=== PATIENT | female | born 1990 | race Caucasian/White ===

== ENCOUNTER 2018-09-28 03:44 | Inpatient (IN) ==
[2018-09-28] MEDS ORDERED: LACTATED RINGER'S 1,000 ML IV PRN ×2 (04:37→06:20)
[2018-09-28] MEDS ORDERED: CEFAZOLIN 2000MG 2,000 MG/15 ML SYR IV STA ×2 (04:37)
[2018-09-28] MEDS ORDERED: OXYTOCIN 30 UNITS/500 ML BAG IV PRN ×2 (04:37→18:02)
[2018-09-28] MEDS: LACTATED RINGER'S 1,000 ML IV PRN ×3 (04:40→11:49)
[2018-09-28 05:18] LABS: Hematocrit (blood only) 39.1 % (37-47); Hemoglobin 13.7 g/dL (12.0-16.0); Mean Corpuscular Volume 88.1 fL (80-100); Mean Platelet Volume 10.1 fL (7.4-10.4); Platelet Count 193 K/uL (130-400); RDW Coefficient of Variation 13.5 % (11.5-14.5); RDW Standard Deviation 43.4 fL (36.4-46.3); Red Blood Count 4.44 M/uL (4.2-5.4); White Blood Count 20.36 K/uL (4.8-10.8)
[2018-09-28] MEDS ORDERED: BUPIVACAINE 0.25% 30 ML VIAL ONE (05:30)
[2018-09-28] MEDS ORDERED: ePHEDrine sulfate 50 MG/ML AMP ONE (05:31)
[2018-09-28] MEDS ORDERED: fentaNYL citrate 100 MCG/2 ML VIAL ONE (05:31)
[2018-09-28] MEDS ORDERED: fentaNYL 2MCG/ML ROPIV 1.25MG/ML 100 ML BAG EPI ONE (05:32)
[2018-09-28] MEDS ORDERED: NALOXONE HCL 0.4 MG/1 ML VIAL/CARP IV PRN (06:20)
[2018-09-28] MEDS ORDERED: ONDANSETRON INJ 2 MG/ML 2 ML VIAL IV PRN (06:20)
[2018-09-28] MEDS ORDERED: DiphenhydrAMINE HCL 50 MG/ML VIAL IV PRN (06:20)
[2018-09-28] MEDS ORDERED: NALBUPHINE HCL INJ 10 MG/ML AMP IV PRN (06:20)
[2018-09-28] MEDS ORDERED: ePHEDrine sulfate 50 MG/ML AMP IV PRN (06:20)
[2018-09-28] MEDS ORDERED: PROMETHAZINE HCL 6.25 MG in SODIUM CHLORIDE 0.9% 50 ML IV PRN (06:20)
[2018-09-28] MEDS ORDERED: fentaNYL 2MCG/ML ROPIV 1.25MG/ML 100 ML BAG EPI PRN (06:20)
[2018-09-28] MEDS ORDERED: NALOXONE HCL 1 MG in SODIUM CHLORIDE 0.9% 1000ML 1,000 ML IV PRN (06:20)
--- NOTE | 2018-09-28 06:23 | Anesthesiology Consultation ---
Date of Service September 28, 2018 Assessment & Plan (1) Encounter for pre-operative examination: Chart Review Chart Review: Patient NOT seen in Pre Admission Testing and Acceptable Risk for Labor Epidural Consults Requested none ASA ASA2 Proposed Anesthesia Anesthesia Type: Labor Epidural Risk / Benefits Reviewed With: PT / POA / Parent / Guardian, Accepts Plan and Informed Consent Obtained History Height/Weight Height: 5 ft 5 in Weight: 76.204 kg Allergies Allergy/AdvReac Type Severity Reaction Status Date / Time Sulfa (Sulfonamide Allergy Anaphylaxis Verified 09/28/18 04:03 Antibiotics) amoxicillin AdvReac Rash Verified 09/28/18 04:03 Penicillins AdvReac Rash Verified 09/28/18 04:03 Medications Home Medications Medication Instructions Recorded Confirmed Last Taken vit-iron fum-folic ac 1 tab PO DAILY 09/26/18 09/28/18 09/27/18 22:30 [ Vitamin] Active Medications Generic Name Dose Route Start Last Admin Trade Name Freq PRN Reason Stop Dose Admin Lactated Ringer's 1,000 mls @ 125 mls/hr 09/28/18 04:37 09/28/18 05:54 Lr IV 09/30/18 04:36 125 mls/hr .Q8H PRN Administration L&D Protocol Protocol NPO Date Last Intake of Fluids: 09/27/18 Time Last Intake of Fluids: 23:00 Date Last Intake of Solids: 09/27/18 Time Last Intake of Solids: 23:00 Past Medical History Medical History [place] teeth extracted 2015 Exercise / Class Metabolic Activity II 4-5 Yardwork/Stairs/Walk up hill Past Surgical History Surgical History Hx of LASIK 2014 Past Anesthesia History No Hx of Anesthesia Complications and No Family Hx of Anesthesia Complications History of PONV No Hx of PONV and No Hx of Motion Sickness Social History Smoking Status: Never smoker Hx Alcohol Use: No Hx Substance Use: No substance use type: does not use Physical Exam Vital Signs Last Vital Signs Temp 37.2 C 09/28/18 04:05 Pulse 75 09/28/18 06:19 Resp 20 09/28/18 04:05 BP 112/61 09/28/18 06:19 Pulse Ox 95 09/28/18 06:18 ENMT Mouth: no dentition abnormality Thyromental Distance: > or= 3.5 Finger Breadths Mallampati Class: II Neck normal visual inspection Respiratory normal respiratory effort Auscultation: lungs clear to auscultation bilaterally Cardiovascular Rate/Rhythm: regular rate and regular rhythm Psychiatric Orientation: alert Testing Laboratory Results 09/28/18 05:07
[2018-09-28] MEDS ORDERED: CEFAZOLIN 1000MG 1,000 MG/7.5 ML SYR IV PRN (07:39)
--- NOTE | 2018-09-28 10:16 | History & Physical Report ---
Date of Service September 28, 2018 Assessment & Plan (1) Active labor at term: 28yo G1 at 41 weeks GA. Labor 1. Fetus: Reactive 2. Labor: Progressing 3. GBS +: Ancef 4. Pain: Epidural PRn History of Present Illness Primary Care Provider: BRIANNE PCP 28yo at 41 weeks GA. Patient presents in labor. Denies VB, LOF. Good FM. complicated by GBS +. Allergies Allergy/AdvReac Type Severity Reaction Status Date / Time Sulfa (Sulfonamide Allergy Anaphylaxis Verified 09/28/18 04:03 Antibiotics) amoxicillin AdvReac Rash Verified 09/28/18 04:03 Penicillins AdvReac Rash Verified 09/28/18 04:03 Home Medications Home Medications Medication Instructions Recorded Confirmed Type vit-iron fum-folic ac 1 tab PO DAILY 09/26/18 09/28/18 History [ Vitamin] Patient History Medical History [place] teeth extracted 2015 Surgical History Hx of LASIK 2014 Social History Preferred Language: Nam[place] Communication Ability: Effective Patient Admitting Clerk Required: No Beliefs That Will Affect Care: None marital status: Current Living Situation: Spouse Other Information That Helps Us Care for You: No Feels Safe at Home: Yes Smoking Status: Never smoker Second Hand Exposure: No Hx Alcohol Use: No Hx Substance Use: No Physical Exam Genitourinary: OB Exam Abdomen: + vertex and + regular contractions Manual OB Exam: + cervical dilation 3 cm, + cervical effacement 80% and + station -1 OB Exam Monitor Tracing: + external FHT monitor used and + category I Results & Data Vital Signs (Past 12 Hours) Vital Signs Temp Pulse Resp BP 09/28/18 04:05 99.0 F 103 H 20 127/81 09/28/18 04:02 99.0 F 103 H 20 127/81
[2018-09-28] MEDS ORDERED: ACETAMINOPHEN 325 MG TAB ONE (10:44)
[2018-09-28] MEDS ORDERED: ACETAMINOPHEN 325 MG TAB PO SCH (10:45)
[2018-09-28] MEDS ORDERED: GENTAMICIN CONSULT ACTIVE PRN (12:31)
[2018-09-28] MEDS ORDERED: GENTAMICIN SULFATE 320 MG in DEXTROSE 5% 100 ML IV SCH (13:30)
[2018-09-28] MEDS ORDERED: Nursing to Pharmacy Communication ONE ×2 (13:52→20:09)
[2018-09-28] MEDS ORDERED: ACETAMINOPHEN 325 MG TAB PO PRN ×2 (14:21→18:02)
[2018-09-28] MEDS: OXYTOCIN 30 UNITS/500 ML BAG IV PRN ×2 (17:40→18:25)
[2018-09-28] MEDS ORDERED: METHYLERGONOVINE MALEATE 0.2 MG/ML AMP ONE (17:46)
[2018-09-28] MEDS ORDERED: HYDROCORTISONE ACETATE 25 MG SUPP PR PRN (18:02)
[2018-09-28] MEDS ORDERED: DIPHTHERIA/TETANUS/PERTUSSIS 0.5 ML SYR/VIAL IM ONE (18:02)
[2018-09-28] MEDS ORDERED: SUPERCREAM 0.870% 15 GM JAR EXT PRN (18:02)
[2018-09-28] MEDS ORDERED: METHYLERGONOVINE MALEATE 0.2 MG/ML AMP IM ONE (18:02)
[2018-09-28] MEDS ORDERED: IBUPROFEN 600 MG TAB PO PRN (18:02)
[2018-09-28] MEDS ORDERED: BENZOCAINE 20% AER SPR 82.5 GM CAN EXT PRN (18:02)
[2018-09-28] MEDS ORDERED: miSOPROStol 200 MCG TAB PR ONE (18:02)
[2018-09-28] MEDS ORDERED: miSOPROStol 200 MCG TAB ONE (18:10)
[2018-09-28 18:13] LABS: Base Excess Cord Arterial Bld -3.6 mEq/L (-9-1.8); Base Excess Cord Venous Blood -3.5 mEq/L (-7.7-1.9); CO2 Cord Arterial Blood 52 mmHg (39.1-73.5); Cord Venous Blood HCO3 22 mmol/L (18.4-26.8); Cord Venous Blood PCO2 40 mmHg (30.4-57.2); Cord Venous Blood PO2 34 mmHg (14.1-43.3); Cord Venous Blood pH 7.36 (7.20-7.44); HCO3 Cord Arterial Blood 24 mmol/L (19.7-28.5); O2 Saturation Cord Venous Bld 73.2 % (<68); PO2 Cord Arterial Blood 27.8 % (4.1-31.7); pH Cord Arterial Blood 7.28 (7.1-7.38)
--- NOTE | 2018-09-28 18:38 | Anesthesia Procedure Note ---
Date of Service September 28, 2018 Anesthesia Post Epidural Note Vital Signs Vital Signs: Temp Pulse Resp BP Pulse Ox 37.5 C 75 20 123/62 98 09/28/18 17:53 09/28/18 18:34 09/28/18 17:53 09/28/18 18:34 09/28/18 17:58 Notes Mental Status: alert / awake / arousable Nausea / Vomiting: adequately controlled Pain: adequately controlled Airway Patency, RR, SpO2: stable & adequate BP & HR: stable & adequate Hydration State: stable & adequate Neuraxial Anesthesia: was administered and sensory block is resolving Anesthetic Complications: no major complications apparent Epidural: Removed without complications and With tip intact
[2018-09-28] MEDS: CEFAZOLIN 1000MG 1,000 MG/7.5 ML SYR IV SCH (21:34)
[2018-09-28] MEDS: DOCUSATE SODIUM 100 MG CAP PO SCH (21:34)
[2018-09-29] MEDS: CEFAZOLIN 1000MG 1,000 MG/7.5 ML SYR IV SCH ×2 (04:52→12:55)
[2018-09-29 06:27] LABS: Hematocrit (blood only) 31.9 % (37-47); Hemoglobin 11.1 g/dL (12.0-16.0)
--- NOTE | 2018-09-29 07:43 | Obstetrical Progress Note ---
Date of Service September 29, 2018 Subjective Ambulation: ambulating normally Voiding: no voiding problems Passing Gas:: Yes Diet Tolerance:: regular diet Lochia:: Moderate Feeding Type:: breast feeding Physical Exam Vital Signs (Past 24 Hours) Last Vital Signs Temp 97.5 F L 09/29/18 04:00 Pulse 80 09/29/18 04:00 Resp 20 09/29/18 04:00 BP 120/64 09/29/18 04:00 Pulse Ox 96 09/28/18 20:45 Genitourinary OB Exam Abdomen: + fundal height Fundus: + firm and + relation to umbilicus (Below); not tender and not boggy
--- NOTE | 2018-09-29 08:17 | Delivery Summary ---
DATE OF OPERATION: 09/28/2018 PROCEDURE: Normal spontaneous vaginal delivery with left labial laceration repair. SURGEON: Blane Jay MD PREOPERATIVE DIAGNOSES: 1. Single intrauterine at 41 weeks 0 days gestational age. 2. Labor. 3. GBS positive. POSTOPERATIVE DIAGNOSES: 1. Single intrauterine at 41 weeks 0 days gestational age. 2. Labor. 3. GBS positive. 4. Chorioamnionitis: 5. Delivered. ESTIMATED BLOOD LOSS: 400 mL. DRAINS: None. FLUIDS: Continuous lactated ringer. URINE OUTPUT: Approximately 200 after delivery. COMPLICATIONS: Chorioamnionitis. INDICATIONS: Tom is a 28-year-old G1, P0, admitted at 41 weeks 0 days gestational age in labor. At first evaluation, she was noted to be 3-4 cm dilated, 80% effaced, -1 station. She continued to progress in labor without augmentation. She received an epidural for anesthesia. After she was approximately 6 cm dilated, she was noted to have some discharge and was felt to have it likely be ruptured. However, forebag was still noted which was ruptured for questionable meconium. The patient continued to progress in labor over the next 2 hours and being complete-complete, +1 at which time she began to push. During the labor process, the patient did develop a maternal fever and tachycardia was diagnosed with chorioamnionitis. She was currently on Ancef for GBS positive with PENICILLIN ALLERGY. The decision was made to add gentamicin to the antibiotic regimen. DESCRIPTION OF PROCEDURE: The patient progressed to 10 cm dilated, 100% effaced, -1 station, pushed over intact perineum with epidural anesthesia and delivered a viable female infant with Apgars of 2, 6 and 7 and weight pending. The head of the delivered in EFRA position and rest into right transverse. A single nuchal cord was noted which was loose and easily reduced. The body and shoulders quickly followed. The was noted to be floppy upon delivery and the cord was quickly clamped and cut. There was noted to be thick meconium after delivery of the head. The was then quickly taken over to the awaiting nursery staff for resuscitation. Attention was then turned to the placenta, a cord segment and cord blood was obtained and then the placenta did deliver spontaneously with gentle cord traction. There was noted to be continued moderate to heavy bleeding after the delivery. Bimanual massage was first initiated along with oxytocin. The bimanual massage noted a decrease of bleeding some; however, the bleeding was still brisker than desired, and the patient was given Methergine IM with significant improvement in her bleeding. Attention was then turned to the perineum, vagina, and cervix. There was noted to be a left labial laceration which was repaired with 3-0 Vicryl in an interrupted stitch. At the completion of the case, 800 mcg of Cytotec was placed per vagina. The patient was kept on Ancef for 24 hours for the development of chorioamnionitis. Both mother and were stable. Before the completion of the case, was taken to the nursery for closer surveillance during the transition. I attest to the content of the Intraoperative Record and any orders documented therein. Any exception s are noted below.
[2018-09-29] MEDS: DOCUSATE SODIUM 100 MG CAP PO SCH ×2 (09:31→20:31)
[2018-09-29] MEDS: PRENATAL VITAMIN 1 TAB PO SCH (09:31)
[2018-09-29] MEDS: FERROUS SULFATE 325 MG TAB PO SCH (09:31)
[2018-09-29] MEDS ORDERED: BISACODYL 5 MG TABEC PO SCH (20:00)
--- NOTE | 2018-09-30 07:26 | Obstetrical Progress Note ---
Date of Service September 30, 2018 Assessment & Plan (1) Status post vaginal delivery: Patient is a 28 year old PPD 2 s/p -Vital signs WNL bp 102/57 T36.7, -Hemoglobin is 11.1 on ppd1 down from 13.7 on admission. no si/sx of anemia. -Pt is doing clinically well -Continue to encourage ambulation as tolerated, Monitor and control pain with motrin prn, Continue diet as tolerated. -Continue to support and encourage breast feeding -Counseled patient on discharge instructions including Vaginal bleeding, fevers, followup, lifting restrictions, breast feeding, vitamins, and nothing in the vagina for 6 weeks. Pt was agreeable -Plan for d/c today Supervising Physician Co-Signing Physician Notes I have reviewed the resident's note and examined the patient myself, and agree with the note above. Subjective Patient sitting up in bed with baby in the bassent next to her and dad across the room. Reports baby was more active overnight. Otherwise patient is tolerat ing her diet, ambulating, passing gas and voiding, still no bm. Reports moderate lochia. Denies H/A, chest pain, palpitations and uti syx. Answered all questions, no concerns at present, pain is well controlled Physical Exam Physical Exam: Constitutional: WD/WN, vitals as above no acute distress Eyes: normal visual lezama by confrontation Neck: normal visual inspection Respiratory: normal respiratory effort, lungs clear to auscultation Cardiovascular: RRR, no murmur, no edema Heart Sounds: normal S1 and normal S2 Extremities: no calf tenderness Gastrointestinal (Abdomen): Uterus firm and below the umbilicus Results & Data Vital Signs (Past 12 Hours) Vital Signs Temp Pulse Resp BP Pulse Ox 09/29/18 23:30 36.7 C 61 18 102/57 L 09/29/18 19:56 36.7 C 75 18 113/71 97 Medications Administered Current Inpatient Medications Acetaminophen (Tylenol) 650 mg PO Q6H PRN PRN Reason: Pain Stop: 10/28/18 14:20 Acetaminophen (Tylenol) 650 mg PO Q6H PRN PRN Reason: Pain/BERGERON/Fever Stop: 10/28/18 18:01 Benzocaine (Dermoplast Pain Relieving [place]) 1 appln EXT PRN PRN PRN Reason: Perineal Discomfort Stop: 10/28/18 18:01 Last Admin: 09/28/18 20:09 Dose: 82.5 appln Documented by: Bisacodyl (Dulcolax) 10 mg WA DAILY PRN PRN Reason: No BM on 2nd post- day Stop: 10/30/18 08:59 Cocaine HCl (Supercream 0.870%) 1 gm EXT BID PRN PRN Reason: Hemorrhoidal Inflammation Stop: 10/12/18 18:01 Docusate Sodium (Colace) 100 mg PO BID [facility] Stop: 10/28/18 20:59 Last Admin: 09/29/18 20:31 Dose: 100 mg Documented by: Ferrous Sulfate (Feosol) 325 mg PO QAM [facility] Stop: 10/29/18 08:59 Last Admin: 09/29/18 09:31 Dose: 325 mg Documented by: Hydrocortisone (Anusol Hc) 25 mg WA BID PRN PRN Reason: Hemorrhoidal Inflammation Stop: 10/28/18 18:01 Oxytocin (Pitocin) 30 units in 500 mls @ 333.333 mls/hr IV .Q1H30M PRN; Protocol PRN Reason: Bleeding Control Stop: 10/28/18 04:36 Last Titration: 09/28/18 20:00 Dose: Infused Documented by: Oxytocin (Pitocin) 30 units in 500 mls @ 333.333 mls/hr IV .Q1H30M PRN; Protocol PRN Reason: Bleeding Control Ibuprofen (Motrin) 600 mg PO Q4H PRN PRN Reason: Pain/BERGERON/Cramping/Fever Stop: 10/28/18 18:01 Last Admin: 09/28/18 19:07 Dose: 600 mg Documented by: Prenat Multivit/Log Peeler/Iron/Folic Ac ( Vitamin) 1 tab PO QAM [facility] Stop: 10/29/18 08:59 Last Admin: 09/29/18 09:31 Dose: 1 tab Documented by: Resident Activity Tracking Resident Involvement: Resident Care Provided Care Provided: Adult Hospital Medicine
[2018-09-30] MEDS: DOCUSATE SODIUM 100 MG CAP PO SCH ×2 (07:27→20:45)
[2018-09-30] MEDS: PRENATAL VITAMIN 1 TAB PO SCH (07:27)
[2018-09-30] MEDS: FERROUS SULFATE 325 MG TAB PO SCH (07:27)
[2018-09-30] MEDS ORDERED: BISACODYL 10 MG SUPP PR PRN (09:00)
== END 2018-09-30 22:00 | disposition home or self-care (01) | DRG 805 ==
LOC: OPB 03:44 → 4S1 03:46 → 4S2 20:25

== ENCOUNTER 2020-09-09 12:44 | Inpatient (IN) ==
[2020-09-09] MEDS ORDERED: ceFAZolin 1000MG 1,000 MG/7.5 ML SYR IV PRN (13:00)
[2020-09-09] MEDS ORDERED: LACTATED RINGER'S 1,000 ML IV PRN (13:00)
[2020-09-09] MEDS ORDERED: OXYTOCIN 30 UNITS/500 ML BAG IV PRN ×2 (13:00→13:36)
[2020-09-09] MEDS ORDERED: ceFAZolin 2000MG 2,000 MG/15 ML SYR IV STA (13:00)
--- NOTE | 2020-09-09 13:06 | History & Physical Report ---
Date of Service September 09, 2020 Assessment & Plan (1) Placental abnormality, antepartum: (2) Encounter for supervision of normal in multigravida: (3) Hx maternal GBS (group B streptococcus) affected , : admit. Will try to get ancef on board for gbs--has allergy to pcn. She does not feel urge to push at this point. Will try to get a spinal/epidural to hopefully get some time for antibiotics. Fetus category one. Anticipate . History of Present Illness Primary Care Provider: NO PCP Patient is a 30 yowf with iup at 40 0/7 weeks who presents to labor and delivery complaining of contractions starting at 7am. Regular and painful. Seen in the office yesterday and 2cm. Arrived in labor and delivery and had srom for green meconium. This uncomplicated but previous with GBS affected infant and was to be treated in labor here. Placenta with a squires that we have been watching. Good growth us. Plan path evaluation of placenta. labs--A+/ab-/ri/rprnr/hepb-/hiv-/gc/ct-/gtt nl x 2/declined cf/sma/afp. Allergies Allergy/AdvReac Type Severity Reaction Status Date / Time Sulfa (Sulfonamide Allergy Anaphylaxis Verified 09/08/20 09:00 Antibiotics) amoxicillin AdvReac Rash Verified 09/08/20 09:00 Penicillins AdvReac Rash Verified 09/08/20 09:00 Home Medications Medication Instructions Recorded Confirmed Type Vitamin 1 tab PO DAILY 09/26/18 09/08/20 History Patient History Medical History Active labor at term Varicella vaccination Surgical History Hx of LASIK 2015 Status post vaginal delivery [place] teeth extracted 2015 Family History Grandmother (Maternal) Diabetes Osteoporosis Grandmother (Paternal) Osteoporosis Mother Kidney stone Grandfather (Paternal) Hypertension Cardiac disorder Denies family history of Ovarian cancer Breast cancer Colorectal cancer Social History Smoking Status: Never smoker Second Hand Exposure: No; Hx Alcohol Use: No Hx Substance Use: No Preferred Language: Maori Communication Ability: Effective Mica Plate Layer Hand Required: No Beliefs That Will Affect Care: None marital status: marital status details: Vik Ayala (31) [phone] Current Living Situation: Spouse and Family Current Living Situation Comment: lives with spouse, daughter, cats-spouse ch anging litter current occupational status: employed 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 Feels Safe at Home: Yes Assistive Devices: None OB History g1--10/05, , 7#3oz,, GBS+, chorio, affected infant Physical Exam Constitutional: WD/WN, vitals as above Gastrointestinal (Abdomen): soft , gravid, nt Psychiatric: A+Ox3, euthymic affect Genitourinary: sitting in green mec cx--c/c/0 toco--q2min efm--125 with mod variability, accels to 150s, no decels Results & Data ([facility]) Vital Signs (Past 12 Hours) Vital Signs Pulse BP 09/09/20 12:52 75 118/63 Code Status & VTE Plan VTE Prophylaxis Plan VTE Prophylaxis will be ordered: No Coding Level of Care Code None Diagnoses Placental abnormality, antepartum O43.109 Encounter for supervision of normal in multigravida Z34.80 Hx maternal GBS (group B streptococcus) affected , O09.299
[2020-09-09 13:15] LABS: Hematocrit (blood only) 38.4 % (37-47); Hemoglobin 12.9 g/dL (12.0-16.0); Mean Corpuscular Hemoglobin 28.7 pg (25-34); Mean Corpuscular Hgb Conc 33.6 g/dL (32-36); Mean Corpuscular Volume 85.5 fL (80-100); Platelet Count 212 K/uL (130-400); RDW Coefficient of Variation 13.3 % (11.5-14.5); RDW Standard Deviation 41.5 fL (36.4-46.3); Red Blood Count 4.49 M/uL (4.2-5.4)
[2020-09-09] MEDS ORDERED: fentaNYL 2MCG/ML ROPIVACAINE 1.25MG/ML 100 ML BAG EPI ONE (13:18)
[2020-09-09] MEDS ORDERED: SODIUM CHLORIDE 0.9% INJ 10 ML VIAL ONE (13:18)
[2020-09-09] MEDS ORDERED: BUPIVACAINE 0.25% 30 ML VIAL ONE (13:18)
[2020-09-09] MEDS ORDERED: ePHEDrine sulfate 50 MG/ML AMP ONE (13:18)
[2020-09-09] MEDS ORDERED: fentaNYL citrate 100 MCG/2 ML VIAL ONE (13:18)
[2020-09-09] MEDS ORDERED: ACETAMINOPHEN 325 MG TAB PO PRN (13:36)
[2020-09-09] MEDS ORDERED: METHYLERGONOVINE MALEATE 0.2 MG/ML AMP ONE (13:42)
[2020-09-09] MEDS ORDERED: LIDOCAINE HCL 1% 20 ML VIAL ONE (13:45)
[2020-09-09] MEDS ORDERED: miSOPROStoL 200 MCG TAB ONE (13:50)
[2020-09-09] MEDS ORDERED: miSOPROStoL 200 MCG TAB PR ONE (14:01)
[2020-09-09] MEDS ORDERED: METHYLERGONOVINE MALEATE 0.2 MG/ML AMP IM ONE (14:01)
--- NOTE | 2020-09-09 14:07 | Delivery Summary ---
Vaginal Delivery Summary Date of Service September 09, 2020 Pre-operative Diagnosis: at 40 weeks active labor meconium hx of previously affected GBS baby. Post-operative Diagnosis: same pph manual extraction of placenta Procedure: EBL: 600cc Anesthesia: local lidocaine Procedure: When the patient sat up for the epidural, she noted she needed to push. Decision made to proceed. The patient pushed for one contraction to deliver a viable female infant in yaniv position. The shoulder was slow to d eliver but did deliver with flattening the bed. There was then a body dystocia and the baby delivered with maternal effort and reaching under the right axilla to assist. The baby delivered through a cord but I did not appreciate that it was a nuchal cord. The nose and mouth were bulb suctioned and the infant was placed in the maternal abdomen for drying and attention. Cord was clamped and cut and the was then handed off to the awaiting nurses. Cord blood and segment obtained. Unfortunately the placenta was slow to delivery. AFter 20 minutes and some continued bleeding, I performed a manual extraction. The placenta was globally adherent and was removed with several passes and in pieces. I swept the uterus x 2 after removing the placenta and did not appreciate any more pieces. Cervix/sulci/rectum/perineum were intact. A small right labial laceration was repaired in the normal standard fashion. Hemostasis obtained with dilute pitocin and fundal massage, IM methergine and 1000mg rectal cytotec. Apgars were 8/9. Mother and baby doing well at the end of the delivery. There were several clots passed after removal of the placenta but as the uterus firmed, these decreased as well as the small gushes. Will continue to watch closely. Placenta sent for pathology for hx of placental squires. Plan another dose of ancef because of manual extraction and multiple uterine sweeps. We were able to barely get a dose of ancef on board a few minutes prior to delivery. Vaginal Delivery Summary and 1st Degree LAC [facility] Vaginal Delivery Charge Vaginal Delivery Codes: 02930 global code for the antepartum, delivery, and post- Delivery Type Details: and 1st Degree LAC
[2020-09-09] MEDS ORDERED: HYDROCORTISONE ACETATE 25 MG SUPP PR PRN (14:15)
[2020-09-09] MEDS ORDERED: DIPHTHERIA/TETANUS/PERTUSSIS 0.5 ML SYR/VIAL IM ONE (14:15)
[2020-09-09] MEDS ORDERED: SUPERCREAM 0.870% 15 GM JAR EXT PRN (14:15)
[2020-09-09] MEDS ORDERED: bisacodyL 10 MG SUPP PR PRN (14:15)
[2020-09-09] MEDS ORDERED: BENZOCAINE 20% AER SPR 82.5 GM CAN EXT PRN (14:15)
[2020-09-09] MEDS: IBUPROFEN 600 MG TAB PO PRN (16:28)
[2020-09-09] MEDS: DOCUSATE SODIUM 100 MG CAP PO SCH (20:34)
[2020-09-09 23:06] LABS: Base Excess Cord Arterial Bld -1.9 mEq/L (-9-1.8); Base Excess Cord Venous Blood -2.6 mEq/L (-7.7-1.9); CO2 Cord Arterial Blood 60 mmHg (39.1-73.5); Cord Venous Blood HCO3 24 mmol/L (18.4-26.8); Cord Venous Blood PCO2 46 mmHg (30.4-57.2); Cord Venous Blood PO2 38 mmHg (14.1-43.3); Cord Venous Blood pH 7.33 (7.20-7.44); HCO3 Cord Arterial Blood 26 mmol/L (19.7-28.5); PO2 Cord Arterial Blood 25 mmHg (4.1-31.7); pH Cord Arterial Blood 7.26 (7.1-7.38)
[2020-09-09 23:07] LABS: Oxygen Sat Cord Arterial Blood < 60.0 % (<60)
[2020-09-10 06:10] LABS: Hematocrit (blood only) 32.2 % (37-47); Hemoglobin 10.9 g/dL (12.0-16.0); Mean Corpuscular Hemoglobin 29.1 pg (25-34); Mean Corpuscular Hgb Conc 33.9 g/dL (32-36); Mean Corpuscular Volume 85.9 fL (80-100); Mean Platelet Volume 10.2 fL (7.4-10.4); Platelet Count 199 K/uL (130-400); RDW Coefficient of Variation 13.3 % (11.5-14.5); RDW Standard Deviation 41.5 fL (36.4-46.3); Red Blood Count 3.75 M/uL (4.2-5.4); White Blood Count 13.91 K/uL (4.8-10.8)
--- NOTE | 2020-09-10 07:16 | Obstetrical Progress Note ---
Date of Service <Alison Woodall DO - Last Filed: 09/10/20 07:18> September 10, 2020 Assessment & Plan <Alison Woodall DO - Last Filed: 09/10/20 07:18> (1) state: PPD #1 - PNL: Rh pos, RI, GBS positive, COVID neg - Not adequately treated for GBS during labor but did receive Ancef after delivery. - Feels well today. Eating well, voiding well, ambulating well. - Pain well controlled with ibuprofen 600mg Q4H PRN - Routine care -- OOB, ambulation, diet progression as tolerated - After discharge will have 6 week follow-up with Dr. Mathur. Subjective <Alison Woodall DO - Last Filed: 09/10/20 07:18> Tom Ayala is a 30 y/o female who is PPD #1 following spontaneous vaginal delivery at 40+0 weeks. To note, patient was unable to be treated appropriately during labor for GBS+ status. She reports feeling well overall this morning. Minimal abdominal cramping and 3/10 pain well managed on analge sics. Voiding without dysuria. Tolerating meals overnight without difficulty, nausea, or vomiting. Patient has been able to ambulate some. She is not yet passing gas. Has persistent lochia with some improvement this morning. Currently . Review of Systems Denies fever or chills. Denies shortness of breath or cough. Denies chest pain. Denies breast pain. Denies dysuria. Denies leg pain or leg swelling. Denies headache or changes in vision. Physical Exam <Alison Woodall DO - Last Filed: 09/10/20 07:18> General: Alert, oriented. No acute distress. Cardiac: Regular rate and rhythm. No murmurs. Respiratory: Clear to auscultation bilaterally a/p, no wheezes/rales/rhonchi. No increased work of breathing. Symmetrical chest rise. No respiratory distress. Abdomen: Soft, nontender, nondistended. Bowel sounds present. Uterus: Uterine fundus firm, palpable at umbilicus. Lower Extremities: No lower extremity edema or swelling. No deep calf pain. Radha's negative bilaterally. Results & Data ([facility]) <Alison Woodall, DO - Last Filed: 09/10/20 07:18> Vital Signs (Past 12 Hours) Vital Signs Temp Pulse Resp BP 09/10/20 03:38 37.0 C 73 18 123/75 09/09/20 23:25 37.0 C 86 18 122/77 09/09/20 19:40 36.6 C 74 18 124/70 Laboratory Results 09/10/20 09/09/20 09/09/20 Range/Units 05:41 13:20 13:20 WBC 13.91 H (4.8-10.8) K/uL RBC 3.75 L (4.2-5.4) M/uL Hgb 10.9 L (12.0-16.0) g/dL Hct 32.2 L (37-47) % MCV 85.9 (80-100) fL MCH 29.1 (25-34) pg MCHC 33.9 (32-36) g/dL RDW Std Deviation 41.5 (36.4-46.3) fL RDW Coeff of Veronica 13.3 (11.5-14.5) % Plt Count 199 (130-400) K/uL MPV 10.2 (7.4-10.4) fL Cord ABG pH 7.26 (7.1-7.38) Cord ABG pCO2 60 (39.1-73.5) mmHg Cord ABG pO2 25 (4.1-31.7) mmHg Cord ABG HCO3 26 (19.7-28.5) mmol/L Cord ABG Base Excess -1.9 (-9-1.8) mEq/L Cord ABG O2 Sat < 60.0 (<60) % Cord VBG pH 7.33 (7.20-7.44) Cord VBG pCO2 46 (30.4-57.2) mmHg Cord VBG pO2 38 (14.1-43.3) mmHg Cord VBG HCO3 24 (18.4-26.8) mmol/L Cord VBG Base Excess -2.6 (-7.7-1.9) mEq/L Cord VBG O2 Sat 77.0 H (<68) % Barometric Pressure 730.4 731.4 mm/Hg Blood Gas Comments A A 09/09/20 Range/Units 13:07 WBC 17.80 H (4.8-10.8) K/uL RBC 4.49 (4.2-5.4) M/uL Hgb 12.9 (12.0-16.0) g/dL Hct 38.4 (37-47) % MCV 85.5 (80-100) fL MCH 28.7 (25-34) pg MCHC 33.6 (32-36) g/dL RDW Std Deviation 41.5 (36.4-46.3) fL RDW Coeff of Veronica 13.3 (11.5-14.5) % Plt Count 212 (130-400) K/uL MPV 10.0 (7.4-10.4) fL Cord ABG pH (7.1-7.38) Cord ABG pCO2 (39.1-73.5) mmHg Cord ABG pO2 (4.1-31.7) mmHg Cord ABG HCO3 (19.7-28.5) mmol/L Cord ABG Base Excess (-9-1.8) mEq/L Cord ABG O2 Sat (<60) % Cord VBG pH (7.20-7.44) Cord VBG pCO2 (30.4-57.2) mmHg Cord VBG pO2 (14.1-43.3) mmHg Cord VBG HCO3 (18.4-26.8) mmol/L Cord VBG Base Excess (-7.7-1.9) mEq/L Cord VBG O2 Sat (<68) % Barometric Pressure mm/Hg Blood Gas Comments <Candi Mathur MD, FACOG - Last Filed: 09/10/20 07:26> Co-Signing Physician Notes Resident Physician Supervision Note: I interviewed and examined the patient. Discussed with Dr. Woodall and agree with findings and plan as documented in the note. Any exceptions or clarifications are listed here: Doing well. h/h ok. no s/s of infection, did receive post delivery ancef. Continue to monitor. Routine care. Documented By: Candi Mathur MD, FACOG Resident Activity Tracking <Alison Woodall, - Last Filed: 09/10/20 07:18> Resident Involvement: Resident Care Provided Care Provided: OB Delivery
[2020-09-10] MEDS: DOCUSATE SODIUM 100 MG CAP PO SCH ×2 (08:27→20:50)
[2020-09-10] MEDS: PRENATAL VITAMIN 1 TAB PO SCH (08:27)
[2020-09-10] MEDS ORDERED: NON-FORMULARY MEDICATION (Prenatal Vit-Iron Fum-Folic Ac [Prenatal Vitamin] 27 mg iron- 0. PO SCH (09:00)
[2020-09-10] MEDS: IBUPROFEN 600 MG TAB PO PRN (16:22)
[2020-09-10] MEDS ORDERED: bisacodyL 5 MG TABEC PO SCH (20:00)
[2020-09-11] MEDS: IBUPROFEN 600 MG TAB PO PRN (00:49)
[2020-09-11 06:29] LABS: Hematocrit (blood only) 31.3 % (37-47); Hemoglobin 10.6 g/dL (12.0-16.0)
--- NOTE | 2020-09-11 07:23 | Obstetrical Progress Note ---
Date of Service September 11, 2020 Assessment & Plan (1) state: Hgb acceptable / patient doing well s/p PPH and placental extraction. D/C instructions reviewed. Subjective Ambulation: ambulating normally Voiding: no voiding problems Passing Gas:: Yes Diet Tolerance:: regular diet Lochia:: Small Feeding Type:: breast feeding Physical Exam Constitutional WD/WN, vitals as above Eyes PERRL, conjunctivae normal, anicteric sclerae Neck normal visual inspection Respiratory normal respiratory effort and able to speak in complete sentences; no respiratory distress and no labored breathing Cardiovascular Rate/Rhythm: regular rate and regular rhythm Extremities: no edema Chest (Breasts) Chest: normal inspection of chest Gastrointestinal (Abdomen) Inspection/Auscultation: abdomen normal to inspection Soft, postgravid Psychiatric A+Ox3, euthymic affect Genitourinary OB Exam Abdomen: + fundal height Fundus: + firm and + relation to umbilicus (fundus just below umbilicus); not tender Results & Data ([place]) Vital Signs (Past 12 Hours) Vital Signs Temp Pulse Resp BP Pulse Ox 09/11/20 00:45 98.8 F 72 17 111/68 97 09/10/20 20:20 99.0 F 69 16 113/69 97
[2020-09-11] MEDS: DOCUSATE SODIUM 100 MG CAP PO SCH (09:14)
[2020-09-11] MEDS: PRENATAL VITAMIN 1 TAB PO SCH (09:14)
== END 2020-09-11 12:12 | disposition home or self-care (01) | DRG 807 ==
LOC: OPB 12:44 → 4S1 12:47 → 4S2 16:45

== ENCOUNTER 2023-02-26 02:18 | Inpatient (IN) ==
[2023-02-26] MEDS ORDERED: OXYTOCIN 30 UNITS/500 ML BAG IV PRN ×3 (02:52→17:56)
[2023-02-26] MEDS ORDERED: PENICILLIN G POTASSIUM 3 MU in DEXTROSE 5% 100 ML IV PRN (02:59)
[2023-02-26] MEDS ORDERED: PENICILLIN G POTASSIUM 6 MU in DEXTROSE 5% 250 ML IV PRN (02:59)
[2023-02-26] MEDS ORDERED: ceFAZolin 330 MG/ML 1 GM VIAL IV STA (03:11)
[2023-02-26] MEDS ORDERED: ceFAZolin 2000MG 2,000 MG/15 ML SYR IV ONE (03:15)
[2023-02-26 03:34] LABS: Basophils # (auto) 0.06 K/uL (0.00-0.20); Basophils % (auto) 0.6 %; Eosinophils # (auto) 0.09 K/uL (0.00-0.50); Eosinophils % (auto) 0.9 %; Hematocrit (blood only) 35.4 % (37.0-47.0); Hemoglobin 11.1 g/dl (12.0-16.0); Immature Granulocytes # (auto) 0.22 K/uL (0.01-0.20); Immature Granulocytes % (auto) 2.2 %; Lymphocytes # (auto) 1.48 K/uL (1.20-3.40); Lymphocytes % (auto) 14.9 %; Mean Corpuscular Hemoglobin 24.8 pg (25.0-34.0); Mean Corpuscular Hgb Conc 31.4 g/dL (32.0-36.0); Monocytes # (auto) 0.82 K/uL (0.11-0.59); Monocytes % (auto) 8.3 %; Neutrophils # (auto) 7.24 K/uL (1.40-6.50); Neutrophils % (auto) 73.1 %; Platelet Count 220 K/uL (130-400); RDW Coefficient of Variation 14.3 % (11.5-14.5); RDW Standard Deviation 40.6 fL (36.4-46.3); Red Blood Count 4.48 M/uL (4.20-5.40); White Blood Count 9.91 K/ul (4.8-10.8)
[2023-02-26] MEDS ORDERED: BUPIVACAINE 0.25% PF 30 ML VIAL ONE (03:48)
[2023-02-26] MEDS ORDERED: LIDOCAINE 2%/EPINEPHRINE 1:200,000 20 ML PF ONE (03:48)
[2023-02-26] MEDS ORDERED: fentaNYL citrate PF 100 MCG/2 ML VIAL ONE (03:48)
[2023-02-26] MEDS ORDERED: SODIUM CHLORIDE 0.9% PF INJ 10 ML VIAL ONE (03:48)
[2023-02-26] MEDS ORDERED: ePHEDrine sulfate 50 MG/ML AMP ONE (03:48)
[2023-02-26] MEDS ORDERED: fentaNYL 2MCG/ML ROPIVACAINE 1.25MG/ML 100 ML BAG EPI ONE (03:49)
[2023-02-26] MEDS: LACTATED RINGER'S 1,000 ML IV PRN ×3 (04:16→17:30)
--- NOTE | 2023-02-26 04:40 | Anesthesiology Consultation ---
Date of Service February 26, 2023 Assessment & Plan Chart Review Chart Review: Acceptable Risk for Labor Epidural Consults Requested none History Height/Weight Height: 5 ft 4 in Weight: 83.007 kg Allergies Allergy/AdvReac Type Severity Reaction Status Date / Time Sulfa (Sulfonamide Allergy Severe Anaphylaxis Verified 02/21/23 08:54 Antibiotics) amoxicillin AdvReac Intermediate Rash Verified 02/21/23 08:54 Penicillins AdvReac Intermediate Rash Verified 02/21/23 08:54 Medications Home Medications Medication Instructions Recorded Confirmed Last Taken prenat.vits,ari,gge-favn-vjpyg 1 tab PO DAILY 07/13/22 02/26/23 02/25/23 09:00 Active Medications Generic Name Dose Route Start Last Admin Trade Name Freq PRN Reason Stop Dose Admin Lactated Ringer's 1,000 mls @ 125 mls/hr 02/26/23 02:52 02/26/23 04:16 Lr IV 03/28/23 02:51 125 mls/hr .Q8H PRN Administration L&D Protocol Protocol Past Medical History Medical History Active labor at term Encounter for supervision of normal in multigravida Varicella vaccination Past Family History Family History Grandmother (Maternal) Diabetes Osteoporosis Grandmother (Paternal) Osteoporosis Mother Kidney stone Grandfather (Paternal) Hypertension Cardiac disorder Denies family history of Ovarian cancer Breast cancer Colorectal cancer Past Surgical History Surgical History (Updated 02/26/23 @ 03:19 by Loni Huang RN) Hx of cholecystectomy June 2022 Hx of LASIK 2015 Status post vaginal delivery [place] teeth extracted 2015 Social History Smoking Status: Never smoker Do You Dip or Chew Tobacco: No Hx Alcohol Use: No Hx Substance Use: No substance use type: does not use Physical Exam Vital Signs Last Vital Signs Temp 36.8 C 02/26/23 02:35 Pulse 103 H 02/26/23 04:39 Resp 18 02/26/23 02:35 BP 114/59 L 02/26/23 04:38 Pulse Ox 98 02/26/23 04:39 Testing Laboratory Results 02/26/23 03:09
[2023-02-26] MEDS ORDERED: LIDOCAINE 2% MPF LOCAL 5 ML VIAL EPI PRN (04:43)
[2023-02-26] MEDS ORDERED: NALBUPHINE HCL INJ 10 MG/ML AMP IV PRN (04:43)
[2023-02-26] MEDS ORDERED: LIDOCAINE 2%/EPINEPHRINE 1:200,000 20 ML PF EPI STA (04:43)
[2023-02-26] MEDS ORDERED: BUPIVACAINE 0.25% PF 30 ML VIAL EPI PRN (04:43)
[2023-02-26] MEDS ORDERED: diphenhydrAMINE 50 MG/ML VIAL IV PRN (04:43)
[2023-02-26] MEDS ORDERED: SODIUM CHLORIDE 0.9% PF INJ 10 ML VIAL EPI STA (04:43)
[2023-02-26] MEDS ORDERED: ROPIVACAINE 0.5% PF 5 MG/ML 20 ML VIAL EPI PRN (04:43)
[2023-02-26] MEDS ORDERED: ePHEDrine sulfate 50 MG/ML AMP IV PRN (04:43)
[2023-02-26] MEDS ORDERED: SODIUM CHLORIDE 0.9% PF INJ 10 ML VIAL EPI PRN (04:43)
[2023-02-26] MEDS ORDERED: NALOXONE HCL 1 MG in SODIUM CHLORIDE 0.9% 1,000 ML IV PRN (04:43)
[2023-02-26] MEDS ORDERED: BUPIVACAINE 0.25% PF 30 ML VIAL EPI STA (04:43)
[2023-02-26] MEDS ORDERED: fentaNYL citrate PF 100 MCG/2 ML VIAL EPI STA (04:43)
[2023-02-26] MEDS ORDERED: fentaNYL 2MCG/ML ROPIVACAINE 1.25MG/ML 100 ML BAG EPI PRN (04:43)
[2023-02-26] MEDS ORDERED: fentaNYL citrate PF 100 MCG/2 ML VIAL EPI PRN (04:43)
[2023-02-26] MEDS ORDERED: NALOXONE HCL 0.4 MG/1 ML VIAL/CARP IV PRN (04:43)
[2023-02-26] MEDS ORDERED: ceFAZolin 330 MG/ML 1 GM VIAL IV SCH (06:00)
--- NOTE | 2023-02-26 07:52 | History & Physical Report ---
Date of Service February 26, 2023 Assessment & Plan (1) Hx maternal GBS (group B streptococcus) affected , : Plan: admit epid, expect Admission and Anticipated Discharge Date Admission Date: February 26, 2023 History of Present Illness Primary Care Provider: NO PCP Visit DIANNA Calculator Estimated Delivery Date Method Current WG Current Estimate 02/26/23 LMP (Certain) 39w 2d Other Estimates 03/03/23 Ultrasound #1 38w 4d LMP: 05/22/22 : 3 Full term: 2 Premature: 0 Total Number of Induced Abortions: 0 Total Number of Spontaneous Abortions: 0 Ectopics: 0 Multiple births: 0 Number of Living Children: 2 and Delivery Plans 1st infant infected with GBS @ Delivery Treat in labor Rubella Non Immune *PPX MMR Allergies Allergy/AdvReac Type Severity Reaction Status Date / Time Sulfa (Sulfonamide Allergy Severe Anaphylaxis Verified 02/21/23 08:54 Antibiotics) amoxicillin AdvReac Intermediate Rash Verified 02/21/23 08:54 Penicillins AdvReac Intermediate Rash Verified 02/21/23 08:54 Home Medications Medication Instructions Recorded Confirmed Type prenat.vits,ari,gnl-iizq-ziimm 1 tab PO DAILY 07/13/22 02/26/23 History Patient History Medical History Active labor at term Encounter for supervision of normal in multigravida Varicella vaccination Surgical History (Updated 02/26/23 @ 03:19 by Loni Huang, ABHI) Hx of cholecystectomy June 2022 Hx of LASIK 2015 Status post vaginal delivery [place] teeth extracted 2015 Family History Grandmother (Maternal) Diabetes Osteoporosis Grandmother (Paternal) Osteoporosis Mother Kidney stone Grandfather (Paternal) Hypertension Cardiac disorder Denies family history of Ovarian cancer Breast cancer Colorectal cancer Social History (Updated 07/13/22 @ 09:01 by Torri Turk) Smoking Status: Never smoker Second Hand Exposure: No; Do You Dip or Chew Tobacco: No; Hx Alcohol Use: No Hx Substance Use: No Preferred Language: Gabonese Communication Ability: Effective Payroll Administrator Required: No Beliefs That Will Affect Care: None marital status: marital status details: Vik Donovanughman (34) [phone] Current Living Situation: Family Current Living Situation Comment: lives with spouse, 2 daughter, cats-spouse changing litter current occupational status: employed 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 Other Information That Helps Us Care for You: No Feels Safe at Home: Yes Safety Concerns: Feels Safe At This Time Assistive Devices: None Review of Systems as per Subjective / HPI Physical Exam Constitutional: WD/WN, vitals as above well developed and well nourished Respiratory: normal respiratory effort, lungs clear to auscultation normal respiratory effort Cardiovascular: RRR, no murmur, no edema Gastrointestinal (Abdomen): normal bowel sounds, soft, nontender, no hepatosplenomegaly Results & Data Vital Signs (Past 12 Hours) Vital Signs Temp Pulse Resp BP Pulse Ox 02/26/23 02:35 98.2 F 18 02/26/23 07:49 98 02/26/23 07:49 68 02/26/23 07:48 66 02/26/23 07:48 101/55 L 02/26/23 07:44 99 02/26/23 07:44 65 02/26/23 07:39 99 02/26/23 07:39 65 02/26/23 07:05 16 02/26/23 07:05 97.7 F 16 02/26/23 07:34 99 02/26/23 07:34 66 02/26/23 07:34 63 02/26/23 07:34 102/50 L 02/26/23 07:29 98 02/26/23 07:29 69 02/26/23 07:24 98 02/26/23 07:24 80 02/26/23 07:20 79 02/26/23 07:20 107/55 L 02/26/23 07:19 98 02/26/23 07:19 74 02/26/23 07:14 98 02/26/23 07:14 78 02/26/23 07:09 98 02/26/23 07:09 84 02/26/23 07:04 99 02/26/23 07:04 80 02/26/23 07:05 76 02/26/23 07:05 111/58 L 02/26/23 06:59 99 02/26/23 06:59 81 02/26/23 06:54 98 02/26/23 06:54 89 02/26/23 06:49 99 02/26/23 06:49 80 02/26/23 06:49 108/51 L 02/26/23 06:44 98 02/26/23 06:44 86 02/26/23 06:39 98 02/26/23 06:39 82 02/26/23 06:34 99 02/26/23 06:34 84 02/26/23 06:35 83 02/26/23 06:35 101/57 L 02/26/23 06:29 98 02/26/23 06:29 74 02/26/23 06:24 99 02/26/23 06:24 87 02/26/23 06:19 97 02/26/23 06:19 79 02/26/23 06:20 75 02/26/23 06:20 108/58 L 02/26/23 06:14 97 02/26/23 06:14 78 02/26/23 06:09 98 02/26/23 06:09 81 02/26/23 06:05 80 02/26/23 06:05 100/59 L 02/26/23 06:04 94 02/26/23 06:04 78 02/26/23 06:04 93 02/26/23 06:04 79 02/26/23 05:59 94 02/26/23 05:59 75 02/26/23 05:57 94 02/26/23 05:57 86 02/26/23 05:54 94 02/26/23 05:54 79 02/26/23 05:50 94 02/26/23 05:50 72 02/26/23 05:49 96 02/26/23 05:49 83 02/26/23 05:45 18 02/26/23 05:45 98.6 F 18 02/26/23 05:47 66 02/26/23 05:47 108/60 02/26/23 05:44 97 02/26/23 05:44 84 02/26/23 05:44 80 02/26/23 05:44 102/60 02/26/23 05:41 68 02/26/23 05:41 106/62 02/26/23 05:39 97 02/26/23 05:39 77 02/26/23 05:38 68 02/26/23 05:38 103/61 02/26/23 05:34 95 02/26/23 05:34 81 02/26/23 05:35 83 02/26/23 05:35 94/58 L 02/26/23 05:32 76 02/26/23 05:32 97/53 L 02/26/23 05:31 94 02/26/23 05:31 71 02/26/23 05:29 98 02/26/23 05:29 84 02/26/23 05:29 82 02/26/23 05:29 96/54 L 02/26/23 05:26 72 02/26/23 05:26 100/56 L 02/26/23 05:24 97 02/26/23 05:24 87 02/26/23 05:23 77 02/26/23 05:23 99/56 L 02/26/23 05:19 97 02/26/23 05:19 79 02/26/23 05:20 75 02/26/23 05:20 96/56 L 02/26/23 05:17 71 02/26/23 05:17 90/50 L 02/26/23 05:14 95 02/26/23 05:14 83 02/26/23 05:14 92 H 02/26/23 05:14 97/55 L 02/26/23 05:11 83 02/26/23 05:11 100/58 L 02/26/23 05:09 97 02/26/23 05:09 81 02/26/23 05:08 94 02/26/23 05:08 75 02/26/23 05:08 103/59 L 02/26/23 05:04 95 02/26/23 05:04 84 02/26/23 05:05 75 02/26/23 05:05 99/56 L 02/26/23 05:03 94 02/26/23 05:03 73 02/26/23 05:02 93 H 02/26/23 05:02 98/56 L 02/26/23 04:59 95 02/26/23 04:59 82 02/26/23 04:59 78 02/26/23 04:59 108/60 02/26/23 04:56 85 02/26/23 04:56 110/60 02/26/23 04:54 96 02/26/23 04:54 87 02/26/23 04:52 94 02/26/23 04:52 78 02/26/23 04:53 82 02/26/23 04:53 111/64 02/26/23 04:49 97 02/26/23 04:49 100 H 02/26/23 04:50 105 H 02/26/23 04:50 109/59 L 02/26/23 04:47 94 H 02/26/23 04:47 113/57 L 02/26/23 04:44 96 02/26/23 04:44 94 H 02/26/23 04:44 76 02/26/23 04:44 116/57 L 02/26/23 04:41 92 H 02/26/23 04:41 117/58 L 02/26/23 04:39 98 02/26/23 04:39 103 H 02/26/23 04:38 96 H 02/26/23 04:38 114/59 L 02/26/23 04:34 98 02/26/23 04:34 93 H 02/26/23 04:35 89 02/26/23 04:35 109/55 L 02/26/23 04:32 93 H 02/26/23 04:32 122/69 02/26/23 04:29 97 02/26/23 04:29 96 H 02/26/23 04:29 97 H 02/26/23 04:29 126/80 02/26/23 04:26 86 02/26/23 04:26 130/81 02/26/23 04:24 97 02/26/23 04:24 82 02/26/23 04:23 79 02/26/23 04:23 129/80 02/26/23 04:19 97 02/26/23 04:19 85 02/26/23 02:31 80 133/77 Coding Level of Care Code None Diagnoses Hx maternal GBS (group B streptococcus) affected , O09.299
--- NOTE | 2023-02-26 08:50 | Labor Progress Brief Note ---
Date of Service February 26, 2023 Subjective comfortable with epidural Assessment & Plan (1) Normal labor: Plan continue current management. fetus category one. Admission and Anticipated Discharge Date Admission Date: February 26, 2023 Physical Exam Physical Exam: cx--8//-2 arom--copious clear toco--q2-4min efm--130s wtih mod variability, accels to 160s, no decels Results & Data Vital Signs (Past 12 Hours) Vital Signs Temp Pulse Resp BP Pulse Ox 02/26/23 02:35 36.8 C 18 02/26/23 08:44 99 02/26/23 08:44 69 02/26/23 08:44 87 L 02/26/23 08:44 66 02/26/23 08:39 98 02/26/23 08:39 73 02/26/23 08:34 100 02/26/23 08:34 65 02/26/23 08:35 68 02/26/23 08:35 100/61 02/26/23 08:29 99 02/26/23 08:29 67 02/26/23 08:24 98 02/26/23 08:24 75 02/26/23 08:19 97 02/26/23 08:19 69 02/26/23 08:20 70 02/26/23 08:20 101/54 L 02/26/23 08:14 96 02/26/23 08:14 78 02/26/23 08:09 98 02/26/23 08:09 79 02/26/23 08:04 97 02/26/23 08:04 68 02/26/23 08:05 71 02/26/23 08:05 104/58 L 02/26/23 08:01 16 02/26/23 08:01 16 02/26/23 07:59 98 02/26/23 07:59 75 02/26/23 07:54 97 02/26/23 07:54 75 02/26/23 07:49 98 02/26/23 07:49 68 02/26/23 07:48 66 02/26/23 07:48 101/55 L 02/26/23 07:44 99 02/26/23 07:44 65 02/26/23 07:39 99 02/26/23 07:39 65 02/26/23 07:05 16 02/26/23 07:05 36.5 C 16 02/26/23 07:34 99 02/26/23 07:34 66 02/26/23 07:34 63 02/26/23 07:34 102/50 L 02/26/23 07:29 98 02/26/23 07:29 69 02/26/23 07:24 98 02/26/23 07:24 80 02/26/23 07:20 79 02/26/23 07:20 107/55 L 02/26/23 07:19 98 02/26/23 07:19 74 02/26/23 07:14 98 02/26/23 07:14 78 02/26/23 07:09 98 02/26/23 07:09 84 02/26/23 07:04 99 02/26/23 07:04 80 02/26/23 07:05 76 02/26/23 07:05 111/58 L 02/26/23 06:59 99 02/26/23 06:59 81 02/26/23 06:54 98 02/26/23 06:54 89 02/26/23 06:49 99 02/26/23 06:49 80 02/26/23 06:49 108/51 L 02/26/23 06:44 98 02/26/23 06:44 86 02/26/23 06:39 98 02/26/23 06:39 82 02/26/23 06:34 99 02/26/23 06:34 84 02/26/23 06:35 83 02/26/23 06:35 101/57 L 02/26/23 06:29 98 02/26/23 06:29 74 02/26/23 06:24 99 02/26/23 06:24 87 02/26/23 06:19 97 02/26/23 06:19 79 02/26/23 06:20 75 02/26/23 06:20 108/58 L 02/26/23 06:14 97 02/26/23 06:14 78 02/26/23 06:09 98 02/26/23 06:09 81 02/26/23 06:05 80 02/26/23 06:05 100/59 L 02/26/23 06:04 94 02/26/23 06:04 78 02/26/23 06:04 93 02/26/23 06:04 79 02/26/23 05:59 94 02/26/23 05:59 75 02/26/23 05:57 94 02/26/23 05:57 86 02/26/23 05:54 94 02/26/23 05:54 79 02/26/23 05:50 94 02/26/23 05:50 72 02/26/23 05:49 96 02/26/23 05:49 83 02/26/23 05:45 18 02/26/23 05:45 37.0 C 18 02/26/23 05:47 66 02/26/23 05:47 108/60 02/26/23 05:44 97 02/26/23 05:44 84 02/26/23 05:44 80 02/26/23 05:44 102/60 02/26/23 05:41 68 02/26/23 05:41 106/62 02/26/23 05:39 97 02/26/23 05:39 77 02/26/23 05:38 68 02/26/23 05:38 103/61 02/26/23 05:34 95 02/26/23 05:34 81 02/26/23 05:35 83 02/26/23 05:35 94/58 L 02/26/23 05:32 76 02/26/23 05:32 97/53 L 02/26/23 05:31 94 02/26/23 05:31 71 02/26/23 05:29 98 02/26/23 05:29 84 02/26/23 05:29 82 02/26/23 05:29 96/54 L 02/26/23 05:26 72 02/26/23 05:26 100/56 L 02/26/23 05:24 97 02/26/23 05:24 87 02/26/23 05:23 77 02/26/23 05:23 99/56 L 02/26/23 05:19 97 02/26/23 05:19 79 02/26/23 05:20 75 02/26/23 05:20 96/56 L 02/26/23 05:17 71 02/26/23 05:17 90/50 L 02/26/23 05:14 95 02/26/23 05:14 83 02/26/23 05:14 92 H 02/26/23 05:14 97/55 L 02/26/23 05:11 83 02/26/23 05:11 100/58 L 02/26/23 05:09 97 02/26/23 05:09 81 02/26/23 05:08 94 02/26/23 05:08 75 02/26/23 05:08 103/59 L 02/26/23 05:04 95 02/26/23 05:04 84 02/26/23 05:05 75 02/26/23 05:05 99/56 L 02/26/23 05:03 94 02/26/23 05:03 73 02/26/23 05:02 93 H 02/26/23 05:02 98/56 L 02/26/23 04:59 95 02/26/23 04:59 82 02/26/23 04:59 78 02/26/23 04:59 108/60 02/26/23 04:56 85 02/26/23 04:56 110/60 02/26/23 04:54 96 02/26/23 04:54 87 02/26/23 04:52 94 02/26/23 04:52 78 02/26/23 04:53 82 02/26/23 04:53 111/64 02/26/23 04:49 97 02/26/23 04:49 100 H 02/26/23 04:50 105 H 02/26/23 04:50 109/59 L 02/26/23 04:47 94 H 02/26/23 04:47 113/57 L 02/26/23 04:44 96 02/26/23 04:44 94 H 02/26/23 04:44 76 02/26/23 04:44 116/57 L 02/26/23 04:41 92 H 02/26/23 04:41 117/58 L 02/26/23 04:39 98 02/26/23 04:39 103 H 02/26/23 04:38 96 H 02/26/23 04:38 114/59 L 02/26/23 04:34 98 02/26/23 04:34 93 H 02/26/23 04:35 89 02/26/23 04:35 109/55 L 02/26/23 04:32 93 H 02/26/23 04:32 122/69 02/26/23 04:29 97 02/26/23 04:29 96 H 02/26/23 04:29 97 H 02/26/23 04:29 126/80 02/26/23 04:26 86 02/26/23 04:26 130/81 02/26/23 04:24 97 02/26/23 04:24 82 02/26/23 04:23 79 02/26/23 04:23 129/80 02/26/23 04:19 97 02/26/23 04:19 85 02/26/23 02:31 80 133/77 Coding Level of Care Code None Diagnoses Normal labor O80; Z37.9
[2023-02-26] MEDS: ceFAZolin 1000MG 1,000 MG/7.5 ML SYR IV SCH (11:07)
--- NOTE | 2023-02-26 11:40 | Labor Progress Brief Note ---
Date of Service February 26, 2023 Subjective comfortable Assessment & Plan (1) Normal labor: Plan continue current management. fetus category one. anticipate . Admission and Anticipated Discharge Date Admission Date: February 26, 2023 Physical Exam Physical Exam: cx--rim/-1 toco--q2-4, pit at 2, contractions spacing after arom efm--130s with mod variabiltiy, accels to 170s, no decels Results & Data Vital Signs (Past 12 Hours) Vital Signs Temp Pulse Resp BP Pulse Ox 02/26/23 02:35 36.8 C 18 02/26/23 11:34 100 02/26/23 11:34 66 02/26/23 11:34 115/61 02/26/23 11:29 97 02/26/23 11:29 63 02/26/23 11:24 97 02/26/23 11:24 66 02/26/23 11:19 97 02/26/23 11:19 65 02/26/23 11:19 114/61 02/26/23 11:02 18 02/26/23 11:02 36.8 C 18 02/26/23 11:14 98 02/26/23 11:14 62 02/26/23 11:09 98 02/26/23 11:09 65 02/26/23 11:04 100 02/26/23 11:04 57 L 02/26/23 11:04 114/63 02/26/23 10:59 100 02/26/23 10:59 62 02/26/23 10:54 98 02/26/23 10:54 62 02/26/23 10:49 98 02/26/23 10:49 62 02/26/23 10:50 62 02/26/23 10:50 104/58 L 02/26/23 10:44 97 02/26/23 10:44 70 02/26/23 10:39 96 02/26/23 10:39 62 02/26/23 10:34 96 02/26/23 10:34 69 02/26/23 10:34 114/62 02/26/23 10:29 98 02/26/23 10:29 73 02/26/23 10:24 97 02/26/23 10:24 73 02/26/23 10:19 97 02/26/23 10:19 65 02/26/23 10:18 81 02/26/23 10:18 112/60 02/26/23 10:05 18 02/26/23 10:05 18 02/26/23 10:14 97 02/26/23 10:14 61 02/26/23 10:09 96 02/26/23 10:09 72 02/26/23 10:05 65 02/26/23 10:05 114/62 02/26/23 10:04 100 02/26/23 10:04 66 02/26/23 09:59 98 02/26/23 09:59 70 02/26/23 09:54 96 02/26/23 09:54 65 02/26/23 09:49 97 02/26/23 09:49 73 02/26/23 09:50 74 02/26/23 09:50 112/56 L 02/26/23 09:44 98 02/26/23 09:44 72 02/26/23 09:39 98 02/26/23 09:39 69 02/26/23 09:34 99 02/26/23 09:34 66 02/26/23 09:34 107/61 02/26/23 09:29 98 02/26/23 09:29 64 02/26/23 09:24 98 02/26/23 09:24 65 02/26/23 09:19 99 02/26/23 09:19 61 02/26/23 09:20 60 02/26/23 09:20 103/57 L 02/26/23 09:14 99 02/26/23 09:14 70 02/26/23 09:09 99 02/26/23 09:09 80 02/26/23 09:04 99 02/26/23 09:04 76 02/26/23 09:03 65 02/26/23 09:03 105/59 L 02/26/23 08:59 98 02/26/23 08:59 74 02/26/23 08:54 98 02/26/23 08:54 75 02/26/23 08:50 16 02/26/23 08:50 37.0 C 16 02/26/23 08:49 97 02/26/23 08:48 72 02/26/23 08:49 87 02/26/23 08:48 100/60 02/26/23 08:44 99 02/26/23 08:44 69 02/26/23 08:44 87 L 02/26/23 08:44 66 02/26/23 08:39 98 02/26/23 08:39 73 02/26/23 08:34 100 02/26/23 08:34 65 02/26/23 08:35 68 02/26/23 08:35 100/61 02/26/23 08:29 99 02/26/23 08:29 67 02/26/23 08:24 98 02/26/23 08:24 75 02/26/23 08:19 97 02/26/23 08:19 69 02/26/23 08:20 70 02/26/23 08:20 101/54 L 02/26/23 08:14 96 02/26/23 08:14 78 02/26/23 08:09 98 02/26/23 08:09 79 02/26/23 08:04 97 02/26/23 08:04 68 02/26/23 08:05 71 02/26/23 08:05 104/58 L 02/26/23 08:01 16 02/26/23 08:01 16 02/26/23 07:59 98 02/26/23 07:59 75 02/26/23 07:54 97 02/26/23 07:54 75 02/26/23 07:49 98 02/26/23 07:49 68 02/26/23 07:48 66 02/26/23 07:48 101/55 L 02/26/23 07:44 99 02/26/23 07:44 65 02/26/23 07:39 99 02/26/23 07:39 65 02/26/23 07:05 16 02/26/23 07:05 36.5 C 16 02/26/23 07:34 99 02/26/23 07:34 66 02/26/23 07:34 63 02/26/23 07:34 102/50 L 02/26/23 07:29 98 02/26/23 07:29 69 02/26/23 07:24 98 02/26/23 07:24 80 02/26/23 07:20 79 02/26/23 07:20 107/55 L 02/26/23 07:19 98 02/26/23 07:19 74 10/10/23 07:14 98 02/26/23 07:14 78 02/26/23 07:09 98 02/26/23 07:09 84 02/26/23 07:04 99 02/26/23 07:04 80 02/26/23 07:05 76 02/26/23 07:05 111/58 L 02/26/23 06:59 99 02/26/23 06:59 81 02/26/23 06:54 98 02/26/23 06:54 89 02/26/23 06:49 99 02/26/23 06:49 80 02/26/23 06:49 108/51 L 02/26/23 06:44 98 02/26/23 06:44 86 02/26/23 06:39 98 02/26/23 06:39 82 02/26/23 06:34 99 02/26/23 06:34 84 02/26/23 06:35 83 02/26/23 06:35 101/57 L 02/26/23 06:29 98 02/26/23 06:29 74 02/26/23 06:24 99 02/26/23 06:24 87 02/26/23 06:19 97 02/26/23 06:19 79 02/26/23 06:20 75 02/26/23 06:20 108/58 L 02/26/23 06:14 97 02/26/23 06:14 78 02/26/23 06:09 98 02/26/23 06:09 81 02/26/23 06:05 80 02/26/23 06:05 100/59 L 02/26/23 06:04 94 02/26/23 06:04 78 02/26/23 06:04 93 02/26/23 06:04 79 02/26/23 05:59 94 02/26/23 05:59 75 02/26/23 05:57 94 02/26/23 05:57 86 02/26/23 05:54 94 02/26/23 05:54 79 02/26/23 05:50 94 02/26/23 05:50 72 02/26/23 05:49 96 02/26/23 05:49 83 02/26/23 05:45 18 02/26/23 05:45 37.0 C 18 02/26/23 05:47 66 02/26/23 05:47 108/60 02/26/23 05:44 97 02/26/23 05:44 84 02/26/23 05:44 80 02/26/23 05:44 102/60 02/26/23 05:41 68 02/26/23 05:41 106/62 02/26/23 05:39 97 02/26/23 05:39 77 02/26/23 05:38 68 02/26/23 05:38 103/61 02/26/23 05:34 95 02/26/23 05:34 81 02/26/23 05:35 83 02/26/23 05:35 94/58 L 02/26/23 05:32 76 02/26/23 05:32 97/53 L 02/26/23 05:31 94 02/26/23 05:31 71 02/26/23 05:29 98 02/26/23 05:29 84 02/26/23 05:29 82 02/26/23 05:29 96/54 L 02/26/23 05:26 72 02/26/23 05:26 100/56 L 02/26/23 05:24 97 02/26/23 05:24 87 02/26/23 05:23 77 02/26/23 05:23 99/56 L 02/26/23 05:19 97 02/26/23 05:19 79 02/26/23 05:20 75 02/26/23 05:20 96/56 L 02/26/23 05:17 71 02/26/23 05:17 90/50 L 02/26/23 05:14 95 02/26/23 05:14 83 02/26/23 05:14 92 H 02/26/23 05:14 97/55 L 02/26/23 05:11 83 02/26/23 05:11 100/58 L 02/26/23 05:09 97 02/26/23 05:09 81 02/26/23 05:08 94 02/26/23 05:08 75 02/26/23 05:08 103/59 L 02/26/23 05:04 95 02/26/23 05:04 84 02/26/23 05:05 75 02/26/23 05:05 99/56 L 02/26/23 05:03 94 02/26/23 05:03 73 02/26/23 05:02 93 H 02/26/23 05:02 98/56 L 02/26/23 04:59 95 02/26/23 04:59 82 02/26/23 04:59 78 02/26/23 04:59 108/60 02/26/23 04:56 85 02/26/23 04:56 110/60 02/26/23 04:54 96 02/26/23 04:54 87 02/26/23 04:52 94 02/26/23 04:52 78 02/26/23 04:53 82 02/26/23 04:53 111/64 02/26/23 04:49 97 02/26/23 04:49 100 H 02/26/23 04:50 105 H 02/26/23 04:50 109/59 L 02/26/23 04:47 94 H 02/26/23 04:47 113/57 L 02/26/23 04:44 96 02/26/23 04:44 94 H 02/26/23 04:44 76 02/26/23 04:44 116/57 L 02/26/23 04:41 92 H 02/26/23 04:41 117/58 L 02/26/23 04:39 98 02/26/23 04:39 103 H 02/26/23 04:38 96 H 02/26/23 04:38 114/59 L 02/26/23 04:34 98 02/26/23 04:34 93 H 02/26/23 04:35 89 02/26/23 04:35 109/55 L 02/26/23 04:32 93 H 02/26/23 04:32 122/69 02/26/23 04:29 97 02/26/23 04:29 96 H 02/26/23 04:29 97 H 02/26/23 04:29 126/80 02/26/23 04:26 86 02/26/23 04:26 130/81 02/26/23 04:24 97 02/26/23 04:24 82 02/26/23 04:23 79 02/26/23 04:23 129/80 02/26/23 04:19 97 02/26/23 04:19 85 02/26/23 02:31 80 133/77 Coding Level of Care Code None Diagnoses Normal labor O80; Z37.9
--- NOTE | 2023-02-26 13:32 | Labor Progress Brief Note ---
Date of Service February 26, 2023 Subjective Attempted pushing. Good effort Assessment & Plan (1) Normal labor: Plan attempted pushing but baby did not really move. fetus category one. Plan postioning in flying cowgirl and laboring down and reattempting in a bit. Plenty of room. Anticipate . Admission and Anticipated Discharge Date Admission Date: February 26, 2023 Physical Exam Physical Exam: cx--c/c/-1 toco--q2-4, pit at 3 efm--130s wtih mod variability, accels to 160s, no decels Results & Data Vital Signs (Past 12 Hours) Vital Signs Temp Pulse Resp BP Pulse Ox 02/26/23 02:35 36.8 C 18 02/26/23 13:24 99 02/26/23 13:24 78 02/26/23 13:23 88 L 02/26/23 13:23 83 02/26/23 13:19 77 L 02/26/23 13:19 72 02/26/23 13:16 88 L 02/26/23 13:16 75 02/26/23 13:14 100 02/26/23 13:14 74 02/26/23 13:09 100 02/26/23 13:10 93 02/26/23 13:09 77 02/26/23 13:10 77 02/26/23 13:04 100 02/26/23 13:04 72 02/26/23 13:03 74 02/26/23 13:03 98/57 L 02/26/23 12:59 100 02/26/23 12:59 77 02/26/23 12:54 100 02/26/23 12:54 66 02/26/23 12:50 65 02/26/23 12:50 99/54 L 02/26/23 12:49 99 02/26/23 12:49 71 02/26/23 12:46 93 02/26/23 12:46 72 02/26/23 12:44 100 02/26/23 12:44 71 02/26/23 12:39 98 02/26/23 12:39 72 02/26/23 12:34 99 02/26/23 12:34 64 02/26/23 12:35 65 02/26/23 12:35 112/62 02/26/23 12:29 98 02/26/23 12:29 63 02/26/23 12:05 18 02/26/23 12:05 18 02/26/23 12:24 98 02/26/23 12:24 75 02/26/23 12:20 73 02/26/23 12:20 118/62 02/26/23 12:19 98 02/26/23 12:19 63 02/26/23 12:14 98 02/26/23 12:14 68 02/26/23 12:09 98 02/26/23 12:09 71 02/26/23 12:04 98 02/26/23 12:04 66 02/26/23 12:05 67 02/26/23 12:05 110/59 L 02/26/23 11:59 98 02/26/23 11:59 75 02/26/23 11:54 98 02/26/23 11:54 61 02/26/23 11:50 75 02/26/23 11:50 119/57 L 02/26/23 11:49 97 02/26/23 11:49 85 02/26/23 11:44 96 02/26/23 11:44 72 02/26/23 11:39 96 02/26/23 11:39 71 02/26/23 11:34 100 02/26/23 11:34 66 02/26/23 11:34 115/61 02/26/23 11:29 97 02/26/23 11:29 63 02/26/23 11:24 97 02/26/23 11:24 66 02/26/23 11:19 97 02/26/23 11:19 65 02/26/23 11:19 114/61 02/26/23 11:02 18 02/26/23 11:02 36.8 C 18 02/26/23 11:14 98 02/26/23 11:14 62 02/26/23 11:09 98 02/26/23 11:09 65 02/26/23 11:04 100 02/26/23 11:04 57 L 02/26/23 11:04 114/63 02/26/23 10:59 100 02/26/23 10:59 62 02/26/23 10:54 98 02/26/23 10:54 62 02/26/23 10:49 98 02/26/23 10:49 62 02/26/23 10:50 62 02/26/23 10:50 104/58 L 02/26/23 10:44 97 02/26/23 10:44 70 02/26/23 10:39 96 02/26/23 10:39 62 02/26/23 10:34 96 02/26/23 10:34 69 02/26/23 10:34 114/62 02/26/23 10:29 98 02/26/23 10:29 73 02/26/23 10:24 97 02/26/23 10:24 73 02/26/23 10:19 97 02/26/23 10:19 65 02/26/23 10:18 81 02/26/23 10:18 112/60 02/26/23 10:05 18 02/26/23 10:05 18 02/26/23 10:14 97 02/26/23 10:14 61 02/26/23 10:09 96 02/26/23 10:09 72 02/26/23 10:05 65 02/26/23 10:05 114/62 02/26/23 10:04 100 02/26/23 10:04 66 02/26/23 09:59 98 02/26/23 09:59 70 02/26/23 09:54 96 02/26/23 09:54 65 02/26/23 09:49 97 02/26/23 09:49 73 02/26/23 09:50 74 02/26/23 09:50 112/56 L 02/26/23 09:44 98 02/26/23 09:44 72 02/26/23 09:39 98 02/26/23 09:39 69 02/26/23 09:34 99 02/26/23 09:34 66 02/26/23 09:34 107/61 02/26/23 09:29 98 02/26/23 09:29 64 02/26/23 09:24 98 02/26/23 09:24 65 02/26/23 09:19 99 02/26/23 09:19 61 02/26/23 09:20 60 02/26/23 09:20 103/57 L 02/26/23 09:14 99 02/26/23 09:14 70 02/26/23 09:09 99 02/26/23 09:09 80 02/26/23 09:04 99 02/26/23 09:04 76 02/26/23 09:03 65 02/26/23 09:03 105/59 L 02/26/23 08:59 98 02/26/23 08:59 74 02/26/23 08:54 98 02/26/23 08:54 75 02/26/23 08:50 16 02/26/23 08:50 37.0 C 16 02/26/23 08:49 97 02/26/23 08:48 72 02/26/23 08:49 87 02/26/23 08:48 100/60 02/26/23 08:44 99 02/26/23 08:44 69 02/26/23 08:44 87 L 02/26/23 08:44 66 02/26/23 08:39 98 02/26/23 08:39 73 02/26/23 08:34 100 02/26/23 08:34 65 02/26/23 08:35 68 02/26/23 08:35 100/61 02/26/23 08:29 99 02/26/23 08:29 67 02/26/23 08:24 98 02/26/23 08:24 75 02/26/23 08:19 97 02/26/23 08:19 69 02/26/23 08:20 70 02/26/23 08:20 101/54 L 02/26/23 08:14 96 02/26/23 08:14 78 02/26/23 08:09 98 02/26/23 08:09 79 02/26/23 08:04 97 02/26/23 08:04 68 02/26/23 08:05 71 02/26/23 08:05 104/58 L 02/26/23 08:01 16 02/26/23 08:01 16 02/26/23 07:59 98 02/26/23 07:59 75 02/26/23 07:54 97 02/26/23 07:54 75 02/26/23 07:49 98 02/26/23 07:49 68 02/26/23 07:48 66 02/26/23 07:48 101/55 L 02/26/23 07:44 99 02/26/23 07:44 65 02/26/23 07:39 99 02/26/23 07:39 65 02/26/23 07:05 16 02/26/23 07:05 36.5 C 16 02/26/23 07:34 99 02/26/23 07:34 66 02/26/23 07:34 63 02/26/23 07:34 102/50 L 02/26/23 07:29 98 02/26/23 07:29 69 02/26/23 07:24 98 02/26/23 07:24 80 02/26/23 07:20 79 02/26/23 07:20 107/55 L 02/26/23 07:19 98 02/26/23 07:19 74 02/26/23 07:14 98 02/26/23 07:14 78 02/26/23 07:09 98 02/26/23 07:09 84 02/26/23 07:04 99 02/26/23 07:04 80 02/26/23 07:05 76 02/26/23 07:05 111/58 L 02/26/23 06:59 99 02/26/23 06:59 81 02/26/23 06:54 98 02/26/23 06:54 89 02/26/23 06:49 99 02/26/23 06:49 80 02/26/23 06:49 108/51 L 02/26/23 06:44 98 02/26/23 06:44 86 02/26/23 06:39 98 02/26/23 06:39 82 02/26/23 06:34 99 02/26/23 06:34 84 02/26/23 06:35 83 02/26/23 06:35 101/57 L 02/26/23 06:29 98 02/26/23 06:29 74 02/26/23 06:24 99 02/26/23 06:24 87 02/26/23 06:19 97 02/26/23 06:19 79 02/26/23 06:20 75 02/26/23 06:20 108/58 L 02/26/23 06:14 97 02/26/23 06:14 78 02/26/23 06:09 98 02/26/23 06:09 81 02/26/23 06:05 80 02/26/23 06:05 100/59 L 02/26/23 06:04 94 02/26/23 06:04 78 02/26/23 06:04 93 02/26/23 06:04 79 02/26/23 05:59 94 02/26/23 05:59 75 02/26/23 05:57 94 02/26/23 05:57 86 02/26/23 05:54 94 02/26/23 05:54 79 02/26/23 05:50 94 02/26/23 05:50 72 02/26/23 05:49 96 02/26/23 05:49 83 02/26/23 05:45 18 02/26/23 05:45 37.0 C 18 02/26/23 05:47 66 02/26/23 05:47 108/60 02/26/23 05:44 97 02/26/23 05:44 84 02/26/23 05:44 80 02/26/23 05:44 102/60 02/26/23 05:41 68 02/26/23 05:41 106/62 02/26/23 05:39 97 02/26/23 05:39 77 02/26/23 05:38 68 02/26/23 05:38 103/61 02/26/23 05:34 95 02/26/23 05:34 81 02/26/23 05:35 83 02/26/23 05:35 94/58 L 02/26/23 05:32 76 02/26/23 05:32 97/53 L 02/26/23 05:31 94 02/26/23 05:31 71 02/26/23 05:29 98 02/26/23 05:29 84 02/26/23 05:29 82 02/26/23 05:29 96/54 L 02/26/23 05:26 72 02/26/23 05:26 100/56 L 02/26/23 05:24 97 02/26/23 05:24 87 02/26/23 05:23 77 02/26/23 05:23 99/56 L 02/26/23 05:19 97 02/26/23 05:19 79 02/26/23 05:20 75 02/26/23 05:20 96/56 L 02/26/23 05:17 71 02/26/23 05:17 90/50 L 02/26/23 05:14 95 02/26/23 05:14 83 02/26/23 05:14 92 H 02/26/23 05:14 97/55 L 02/26/23 05:11 83 02/26/23 05:11 100/58 L 02/26/23 05:09 97 02/26/23 05:09 81 02/26/23 05:08 94 02/26/23 05:08 75 02/26/23 05:08 103/59 L 02/26/23 05:04 95 02/26/23 05:04 84 02/26/23 05:05 75 02/26/23 05:05 99/56 L 02/26/23 05:03 94 02/26/23 05:03 73 02/26/23 05:02 93 H 02/26/23 05:02 98/56 L 02/26/23 04:59 95 02/26/23 04:59 82 02/26/23 04:59 78 02/26/23 04:59 108/60 02/26/23 04:56 85 02/26/23 04:56 110/60 02/26/23 04:54 96 02/26/23 04:54 87 02/26/23 04:52 94 02/26/23 04:52 78 02/26/23 04:53 82 02/26/23 04:53 111/64 02/26/23 04:49 97 02/26/23 04:49 100 H 02/26/23 04:50 105 H 02/26/23 04:50 109/59 L 02/26/23 04:47 94 H 02/26/23 04:47 113/57 L 02/26/23 04:44 96 02/26/23 04:44 94 H 02/26/23 04:44 76 02/26/23 04:44 116/57 L 02/26/23 04:41 92 H 02/26/23 04:41 117/58 L 02/26/23 04:39 98 02/26/23 04:39 103 H 02/26/23 04:38 96 H 02/26/23 04:38 114/59 L 02/26/23 04:34 98 02/26/23 04:34 93 H 02/26/23 04:35 89 02/26/23 04:35 109/55 L 02/26/23 04:32 93 H 02/26/23 04:32 122/69 02/26/23 04:29 97 02/26/23 04:29 96 H 02/26/23 04:29 97 H 02/26/23 04:29 126/80 02/26/23 04:26 86 02/26/23 04:26 130/81 02/26/23 04:24 97 02/26/23 04:24 82 02/26/23 04:23 79 02/26/23 04:23 129/80 02/26/23 04:19 97 02/26/23 04:19 85 02/26/23 02:31 80 133/77 Coding Level of Care Code None Diagnoses Normal labor O80; Z37.9
--- NOTE | 2023-02-26 15:10 | Labor Progress Brief Note ---
Date of Service February 26, 2023 Subjective started pushing again because was having pressure. Fair effort. Assessment & Plan (1) Normal labor: Plan Attempted pushing again for about 45 minutes and really no movement of the baby. As the baby is very reassuring, want to attempt to labor down again, but will not be able to do without a redose. Plan redose epidural, labor down for one hour and then attempt pushing again. Real concern that this is a and baby not easily tranversing the pelvis. We are in ORLY, no significant molding. continues to be treated for GBS with second dose at 1pm. Maternal heart rate is 110, has been afebrile. Will discuss the situation in detail with the patient once she is more comfortable with epidural. Admission and Anticipated Discharge Date Admission Date: February 26, 2023 Physical Exam Physical Exam: toco--q2-3min, pit at 4 efm--150s with mod variability, variables with pushing cx c/c/-1-0 Results & Data Vital Signs (Past 12 Hours) Vital Signs Temp Pulse Resp BP Pulse Ox 02/26/23 15:00 98 02/26/23 15:00 123 H 02/26/23 14:56 94 02/26/23 14:56 141 H 02/26/23 14:55 98 02/26/23 14:55 140 H 02/26/23 14:50 97 02/26/23 14:50 149 H 02/26/23 14:50 121/55 L 02/26/23 14:45 98 02/26/23 14:46 86 L 02/26/23 14:45 135 H 02/26/23 14:46 137 H 02/26/23 14:40 94 02/26/23 14:40 146 H 02/26/23 14:39 91 02/26/23 14:39 166 H 02/26/23 14:35 97 02/26/23 14:35 145 H 02/26/23 14:34 151 H 02/26/23 14:34 115/58 L 02/26/23 14:33 92 02/26/23 14:33 137 H 02/26/23 14:30 98 02/26/23 14:30 134 H 02/26/23 14:27 92 02/26/23 14:27 114 H 02/26/23 14:25 98 02/26/23 14:25 123 H 02/26/23 14:22 89 L 02/26/23 14:22 119 H 02/26/23 14:20 97 02/26/23 14:20 125 H 02/26/23 14:19 176 H 02/26/23 14:19 109/75 02/26/23 14:15 96 02/26/23 14:15 137 H 02/26/23 14:09 100 02/26/23 14:10 86 L 02/26/23 14:09 101 H 02/26/23 14:10 103 H 02/26/23 14:05 120 H 02/26/23 14:05 110/72 02/26/23 14:04 95 02/26/23 14:04 108 H 02/26/23 13:59 97 02/26/23 13:59 117 H 02/26/23 13:55 22 02/26/23 13:55 36.8 C 22 02/26/23 13:54 97 02/26/23 13:54 103 H 02/26/23 13:49 98 02/26/23 13:49 105 H 02/26/23 13:49 113/55 L 02/26/23 13:44 97 02/26/23 13:44 113 H 02/26/23 13:39 98 02/26/23 13:39 114 H 02/26/23 13:34 97 02/26/23 13:34 101 H 02/26/23 13:34 94 H 02/26/23 13:34 118/80 02/26/23 13:29 97 02/26/23 13:29 113 H 02/26/23 13:24 99 02/26/23 13:24 78 02/26/23 13:23 88 L 02/26/23 13:23 83 02/26/23 13:19 77 L 02/26/23 13:19 72 02/26/23 13:16 88 L 02/26/23 13:16 75 02/26/23 13:14 100 02/26/23 13:14 74 02/26/23 13:09 100 02/26/23 13:10 93 02/26/23 13:09 77 02/26/23 13:10 77 02/26/23 13:04 100 02/26/23 13:04 72 02/26/23 13:03 74 02/26/23 13:03 98/57 L 02/26/23 12:59 100 02/26/23 12:59 77 02/26/23 12:54 100 02/26/23 12:54 66 02/26/23 12:50 65 02/26/23 12:50 99/54 L 02/26/23 12:49 99 02/26/23 12:49 71 02/26/23 12:46 93 02/26/23 12:46 72 02/26/23 12:44 100 02/26/23 12:44 71 02/26/23 12:39 98 02/26/23 12:39 72 02/26/23 12:34 99 02/26/23 12:34 64 02/26/23 12:35 65 02/26/23 12:35 112/62 02/26/23 12:29 98 02/26/23 12:29 63 02/26/23 12:05 18 02/26/23 12:05 18 02/26/23 12:24 98 02/26/23 12:24 75 02/26/23 12:20 73 02/26/23 12:20 118/62 02/26/23 12:19 98 02/26/23 12:19 63 02/26/23 12:14 98 02/26/23 12:14 68 02/26/23 12:09 98 02/26/23 12:09 71 02/26/23 12:04 98 02/26/23 12:04 66 02/26/23 12:05 67 02/26/23 12:05 110/59 L 02/26/23 11:59 98 02/26/23 11:59 75 02/26/23 11:54 98 02/26/23 11:54 61 02/26/23 11:50 75 02/26/23 11:50 119/57 L 02/26/23 11:49 97 02/26/23 11:49 85 02/26/23 11:44 96 02/26/23 11:44 72 02/26/23 11:39 96 02/26/23 11:39 71 02/26/23 11:34 100 02/26/23 11:34 66 02/26/23 11:34 115/61 02/26/23 11:29 97 02/26/23 11:29 63 02/26/23 11:24 97 02/26/23 11:24 66 02/26/23 11:19 97 02/26/23 11:19 65 02/26/23 11:19 114/61 02/26/23 11:02 18 02/26/23 11:02 36.8 C 18 02/26/23 11:14 98 02/26/23 11:14 62 02/26/23 11:09 98 02/26/23 11:09 65 02/26/23 11:04 100 02/26/23 11:04 57 L 02/26/23 11:04 114/63 02/26/23 10:59 100 02/26/23 10:59 62 02/26/23 10:54 98 02/26/23 10:54 62 02/26/23 10:49 98 02/26/23 10:49 62 02/26/23 10:50 62 02/26/23 10:50 104/58 L 02/26/23 10:44 97 02/26/23 10:44 70 02/26/23 10:39 96 02/26/23 10:39 62 02/26/23 10:34 96 02/26/23 10:34 69 02/26/23 10:34 114/62 02/26/23 10:29 98 02/26/23 10:29 73 02/26/23 10:24 97 02/26/23 10:24 73 02/26/23 10:19 97 02/26/23 10:19 65 02/26/23 10:18 81 02/26/23 10:18 112/60 02/26/23 10:05 18 02/26/23 10:05 18 02/26/23 10:14 97 02/26/23 10:14 61 02/26/23 10:09 96 02/26/23 10:09 72 02/26/23 10:05 65 02/26/23 10:05 114/62 02/26/23 10:04 100 02/26/23 10:04 66 02/26/23 09:59 98 02/26/23 09:59 70 02/26/23 09:54 96 02/26/23 09:54 65 02/26/23 09:49 97 02/26/23 09:49 73 02/26/23 09:50 74 02/26/23 09:50 112/56 L 02/26/23 09:44 98 02/26/23 09:44 72 02/26/23 09:39 98 02/26/23 09:39 69 02/26/23 09:34 99 02/26/23 09:34 66 02/26/23 09:34 107/61 02/26/23 09:29 98 02/26/23 09:29 64 02/26/23 09:24 98 02/26/23 09:24 65 02/26/23 09:19 99 02/26/23 09:19 61 02/26/23 09:20 60 02/26/23 09:20 103/57 L 02/26/23 09:14 99 02/26/23 09:14 70 02/26/23 09:09 99 02/26/23 09:09 80 02/26/23 09:04 99 02/26/23 09:04 76 02/26/23 09:03 65 02/26/23 09:03 105/59 L 02/26/23 08:59 98 02/26/23 08:59 74 02/26/23 08:54 98 02/26/23 08:54 75 02/26/23 08:50 16 02/26/23 08:50 37.0 C 16 02/26/23 08:49 97 02/26/23 08:48 72 02/26/23 08:49 87 02/26/23 08:48 100/60 02/26/23 08:44 99 02/26/23 08:44 69 02/26/23 08:44 87 L 02/26/23 08:44 66 02/26/23 08:39 98 02/26/23 08:39 73 02/26/23 08:34 100 02/26/23 08:34 65 02/26/23 08:35 68 02/26/23 08:35 100/61 02/26/23 08:29 99 02/26/23 08:29 67 02/26/23 08:24 98 02/26/23 08:24 75 02/26/23 08:19 97 02/26/23 08:19 69 02/26/23 08:20 70 02/26/23 08:20 101/54 L 02/26/23 08:14 96 02/26/23 08:14 78 02/26/23 08:09 98 02/26/23 08:09 79 02/26/23 08:04 97 02/26/23 08:04 68 02/26/23 08:05 71 02/26/23 08:05 104/58 L 02/26/23 08:01 16 02/26/23 08:01 16 02/26/23 07:59 98 02/26/23 07:59 75 02/26/23 07:54 97 02/26/23 07:54 75 02/26/23 07:49 98 02/26/23 07:49 68 02/26/23 07:48 66 02/26/23 07:48 101/55 L 02/26/23 07:44 99 02/26/23 07:44 65 02/26/23 07:39 99 02/26/23 07:39 65 02/26/23 07:05 16 02/26/23 07:05 36.5 C 16 02/26/23 07:34 99 02/26/23 07:34 66 02/26/23 07:34 63 02/26/23 07:34 102/50 L 02/26/23 07:29 98 02/26/23 07:29 69 02/26/23 07:24 98 02/26/23 07:24 80 02/26/23 07:20 79 02/26/23 07:20 107/55 L 02/26/23 07:19 98 02/26/23 07:19 74 02/26/23 07:14 98 02/26/23 07:14 78 02/26/23 07:09 98 02/26/23 07:09 84 02/26/23 07:04 99 02/26/23 07:04 80 02/26/23 07:05 76 02/26/23 07:05 111/58 L 02/26/23 06:59 99 02/26/23 06:59 81 02/26/23 06:54 98 02/26/23 06:54 89 02/26/23 06:49 99 02/26/23 06:49 80 02/26/23 06:49 108/51 L 02/26/23 06:44 98 10/10/23 06:44 86 02/26/23 06:39 98 02/26/23 06:39 82 02/26/23 06:34 99 02/26/23 06:34 84 02/26/23 06:35 83 02/26/23 06:35 101/57 L 02/26/23 06:29 98 02/26/23 06:29 74 02/26/23 06:24 99 02/26/23 06:24 87 02/26/23 06:19 97 02/26/23 06:19 79 02/26/23 06:20 75 02/26/23 06:20 108/58 L 02/26/23 06:14 97 02/26/23 06:14 78 02/26/23 06:09 98 02/26/23 06:09 81 02/26/23 06:05 80 02/26/23 06:05 100/59 L 02/26/23 06:04 94 02/26/23 06:04 78 02/26/23 06:04 93 02/26/23 06:04 79 02/26/23 05:59 94 02/26/23 05:59 75 02/26/23 05:57 94 02/26/23 05:57 86 02/26/23 05:54 94 02/26/23 05:54 79 02/26/23 05:50 94 02/26/23 05:50 72 02/26/23 05:49 96 02/26/23 05:49 83 02/26/23 05:45 18 02/26/23 05:45 37.0 C 18 02/26/23 05:47 66 02/26/23 05:47 108/60 02/26/23 05:44 97 02/26/23 05:44 84 02/26/23 05:44 80 02/26/23 05:44 102/60 02/26/23 05:41 68 02/26/23 05:41 106/62 02/26/23 05:39 97 02/26/23 05:39 77 02/26/23 05:38 68 02/26/23 05:38 103/61 02/26/23 05:34 95 02/26/23 05:34 81 02/26/23 05:35 83 02/26/23 05:35 94/58 L 02/26/23 05:32 76 02/26/23 05:32 97/53 L 02/26/23 05:31 94 02/26/23 05:31 71 02/26/23 05:29 98 02/26/23 05:29 84 02/26/23 05:29 82 02/26/23 05:29 96/54 L 02/26/23 05:26 72 02/26/23 05:26 100/56 L 02/26/23 05:24 97 02/26/23 05:24 87 02/26/23 05:23 77 02/26/23 05:23 99/56 L 02/26/23 05:19 97 02/26/23 05:19 79 02/26/23 05:20 75 02/26/23 05:20 96/56 L 02/26/23 05:17 71 02/26/23 05:17 90/50 L 02/26/23 05:14 95 02/26/23 05:14 83 02/26/23 05:14 92 H 02/26/23 05:14 97/55 L 02/26/23 05:11 83 02/26/23 05:11 100/58 L 02/26/23 05:09 97 02/26/23 05:09 81 02/26/23 05:08 94 02/26/23 05:08 75 02/26/23 05:08 103/59 L 02/26/23 05:04 95 02/26/23 05:04 84 02/26/23 05:05 75 02/26/23 05:05 99/56 L 02/26/23 05:03 94 02/26/23 05:03 73 02/26/23 05:02 93 H 02/26/23 05:02 98/56 L 02/26/23 04:59 95 02/26/23 04:59 82 02/26/23 04:59 78 02/26/23 04:59 108/60 02/26/23 04:56 85 02/26/23 04:56 110/60 02/26/23 04:54 96 02/26/23 04:54 87 02/26/23 04:52 94 02/26/23 04:52 78 02/26/23 04:53 82 02/26/23 04:53 111/64 02/26/23 04:49 97 02/26/23 04:49 100 H 02/26/23 04:50 105 H 02/26/23 04:50 109/59 L 02/26/23 04:47 94 H 02/26/23 04:47 113/57 L 02/26/23 04:44 96 02/26/23 04:44 94 H 02/26/23 04:44 76 02/26/23 04:44 116/57 L 02/26/23 04:41 92 H 02/26/23 04:41 117/58 L 02/26/23 04:39 98 02/26/23 04:39 103 H 02/26/23 04:38 96 H 02/26/23 04:38 114/59 L 02/26/23 04:34 98 02/26/23 04:34 93 H 02/26/23 04:35 89 02/26/23 04:35 109/55 L 02/26/23 04:32 93 H 02/26/23 04:32 122/69 02/26/23 04:29 97 02/26/23 04:29 96 H 02/26/23 04:29 97 H 02/26/23 04:29 126/80 02/26/23 04:26 86 02/26/23 04:26 130/81 02/26/23 04:24 97 02/26/23 04:24 82 02/26/23 04:23 79 02/26/23 04:23 129/80 02/26/23 04:19 97 02/26/23 04:19 85 Coding Level of Care Code None Diagnoses Normal labor O80; Z37.9
[2023-02-26] MEDS ORDERED: HYDROCORTISONE ACETATE 25 MG SUPP PR PRN (17:56)
[2023-02-26] MEDS ORDERED: bisacodyL 10 MG SUPP PR PRN (17:56)
[2023-02-26] MEDS ORDERED: BENZOCAINE 20% SPRY 85 APPLN/85 GM CAN EXT PRN (17:56)
[2023-02-26] MEDS ORDERED: ACETAMINOPHEN 325 MG TAB PO PRN (17:56)
[2023-02-26] MEDS ORDERED: oxyCODONE/ACETAMINOPHEN 5mg/325mg TAB PO PRN (17:56)
--- NOTE | 2023-02-26 18:02 | Delivery Summary ---
Vaginal Delivery Summary Date of Service February 26, 2023 Vaginal Delivery Summary VAVD Pre-operative Diagnosis: at 40 weeks normal labor Post-operative Diagnosis: same shoulder dystocia Procedure: epidural arom pitocin augmentation outlet vavd EBL: 400cc Anesthesia: epidural Procedure: On pushing again the patient had much better effort. The patient pushed for about 30 minutes to . She had significant pain with and so I assisted with the vacuum at outlet to deliver the head. It delivered yaniv and then rotated to lop. On attempt to immediately delivery the anterior shoulder, a shoulder dystocia of the right shoulder noted that was resolved in less than 30 secs with Piotr and suprapubic pressure. The rest of the baby was then delivered. The nose and mouth were bulb suctioned. The baby was crying and was placed in the maternal abdomen for drying and attention. Cord was clamped and cut at one minute of life. Cord blood and segment obtained. Placenta delivered spontaneous, intact with a three vessel cord. Cervix/sulci/rectum/perineum were intact. Hemostasis obtained with dilute pitocin and fundal massage. Apgars were 8/9. There was significant swelling of the vulva and labia after delivery. I had concerns that she would be able to spontaneously void. I therefore placed a laboy catheter. Mother and baby doing well at the end of the delivery. [facility] Vaginal Delivery Charge Delivery Type Details: [facility]
[2023-02-26] MEDS: IBUPROFEN 600 MG TAB PO PRN (19:39)
--- NOTE | 2023-02-26 21:05 | Anesthesia Procedure Note ---
Date of Service February 26, 2023 Anesthesia Post Epidural Note Vital Signs Vital Signs: Temp Pulse Resp BP Pulse Ox 37.5 C 78 18 111/61 99 02/26/23 20:00 02/26/23 19:51 02/26/23 20:00 02/26/23 19:51 02/26/23 17:50 Notes Mental Status: alert / awake / arousable and participated in evaluation Patient Amnestic to Procedure: No Nausea / Vomiting: adequately controlled Pain: adequately controlled Airway Patency, RR, SpO2: stable & adequate BP & HR: stable & adequate Hydration State: stable & adequate Neuraxial Anesthesia: was administered and sensory block is resolving Anesthetic Complications: no major complications apparent and Pt Satisfied with anesthetic care Epidural: Removed without complications and With tip intact
[2023-02-26] MEDS: DOCUSATE SODIUM 100 MG CAP PO SCH (22:24)
[2023-02-27] MEDS: IBUPROFEN 600 MG TAB PO PRN ×3 (04:06→16:38)
--- NOTE | 2023-02-27 04:59 | Obstetrical Progress Note ---
Date of Service February 27, 2023 Assessment & Plan (1) Encounter for care and examination after delivery: Plan s/p day 1 Viral signs reviewed and WNL Blood type A+ Rubella non- immune, vaccine post GBS + treated in labor Pt doing well clinically D/ C Laboy Encourage ambulation Monitor and control pain with Motrin prn Regular diet, Monitor Lochia Encourage breast feeding Admission and Anticipated Discharge Date Admission Date: February 26, 2023 Supervising Physician Co-Signing Physician Notes Resident Physician Supervision Note: I interviewed and examined the patient. Discussed with Dr. Storm Grant and agree with findings and plan as documented in the note. Any exceptions or clarif ications are listed here: Doing well. Swelling of labia decreased today. Plan d/c laboy for trial. Otherwise, routine pp care. Documented By: Candi Mathur MD, FACOG Subjective 32 yo post- day 1 s/p complicated with shoulder dystocia Ambulation: Ambulating normally Voiding: Laboy catheter Passing Gas:: Yes Diet Tolerance:: regular diet Lochia:: Small Feeding Type: breast feeding Current Pain Level: minimal Resting comfortably this AM in NAD. Denies BERGERON, CP, SOB, N/V/D, LE pain/swelling. Review of Systems Review of Systems: All systems reviewed & are unremarkable except as noted in HPI & below Physical Exam Physical Exam: General: patient resting comfortably, NAD, non-toxic in appearance, AA&O x 4, answers questions appropriately. Skin: warm, dry, intact HEENT: NC/AT, anicteric sclera, conjunctiva without injection, moist mucus membranes. Heart: +S1/S2, regular, no m/r/g Lungs: equal air entry bilaterally, no rales/rhonchi/wheezes Abd: +BS, soft, NT/ND, uterine fundus firm at umbilicus Ext: warm, no clubbing/cyanosis or edema, Radha's neg. Neuro: nonfocal, patient AA&O x 4, speech intact, no facial droop, moving all extremities on command. Results & Data Vital Signs (Past 12 Hours) Vital Signs Temp Pulse Pulse Resp BP BP Pulse Ox 02/27/23 03:47 36.8 C 65 18 96/60 L 96 02/26/23 23:16 36.5 C 61 18 99/59 L 95 02/26/23 20:00 37.5 C 18 02/26/23 19:30 18 02/26/23 19:51 78 02/26/23 19:51 111/61 02/26/23 19:36 73 02/26/23 19:36 111/55 L 02/26/23 19:21 76 02/26/23 19:21 114/55 L 02/26/23 19:06 82 02/26/23 19:06 115/61 02/26/23 18:51 94 H 02/26/23 18:51 116/60 02/26/23 18:36 78 02/26/23 18:36 103/56 L 02/26/23 18:23 77 02/26/23 18:23 115/53 L 02/26/23 17:51 18 02/26/23 17:51 37.2 C 18 02/26/23 18:06 98 H 02/26/23 18:06 123/62 02/26/23 17:51 111 H 02/26/23 17:51 133/60 02/26/23 17:50 99 02/26/23 17:50 107 H 02/26/23 17:45 97 02/26/23 17:45 119 H 02/26/23 17:41 90 02/26/23 17:41 188 H 02/26/23 17:40 78 L 02/26/23 17:40 194 H 02/26/23 17:36 93 02/26/23 17:36 186 H 02/26/23 17:35 95 02/26/23 17:35 172 H 02/26/23 17:30 96 02/26/23 17:30 160 H 02/26/23 17:29 90 02/26/23 17:29 134 H 02/26/23 17:25 96 02/26/23 17:25 153 H 02/26/23 17:25 162 H 02/26/23 17:25 125/57 L 02/26/23 17:20 84 L 02/26/23 17:20 125 H 02/26/23 17:16 22 02/26/23 17:16 37.2 C 22 02/26/23 17:15 93 02/26/23 17:16 93 02/26/23 17:15 153 H 02/26/23 17:16 150 H 02/26/23 17:10 79 L 02/26/23 17:10 141 H 02/26/23 17:08 94 02/26/23 17:08 150 H 02/26/23 17:05 98 02/26/23 17:05 129 H 02/26/23 17:00 100 02/26/23 17:00 106 H O2 Del Method 02/27/23 03:47 Room Air 02/26/23 23:16 Room Air 02/26/23 20:00 02/26/23 19:30 02/26/23 19:51 02/26/23 19:51 02/26/23 19:36 02/26/23 19:36 02/26/23 19:21 02/26/23 19:21 02/26/23 19:06 02/26/23 19:06 02/26/23 18:51 02/26/23 18:51 02/26/23 18:36 02/26/23 18:36 02/26/23 18:23 02/26/23 18:23 02/26/23 17:51 02/26/23 17:51 02/26/23 18:06 02/26/23 18:06 02/26/23 17:51 02/26/23 17:51 02/26/23 17:50 02/26/23 17:50 02/26/23 17:45 02/26/23 17:45 02/26/23 17:41 02/26/23 17:41 02/26/23 17:40 02/26/23 17:40 02/26/23 17:36 02/26/23 17:36 02/26/23 17:35 02/26/23 17:35 02/26/23 17:30 02/26/23 17:30 02/26/23 17:29 02/26/23 17:29 02/26/23 17:25 02/26/23 17:25 02/26/23 17:25 02/26/23 17:25 02/26/23 17:20 02/26/23 17:20 02/26/23 17:16 02/26/23 17:16 02/26/23 17:15 02/26/23 17:16 02/26/23 17:15 02/26/23 17:16 02/26/23 17:10 02/26/23 17:10 02/26/23 17:08 02/26/23 17:08 02/26/23 17:05 02/26/23 17:05 02/26/23 17:00 02/26/23 17:00 Resident Activity Tracking Resident Involvement: Resident Care Provided Care Provided: OB Delivery
[2023-02-27] MEDS ORDERED: MEASLES, MUMPS & RUBELLA VIRUS VACCINE (MMR) VIAL SQ ONE (05:01)
[2023-02-27] MEDS: ceFAZolin 1000MG 1,000 MG/7.5 ML SYR IV SCH (06:41)
[2023-02-27 06:42] LABS: Hematocrit (blood only) 29.6 % (37.0-47.0); Hemoglobin 9.8 g/dl (12.0-16.0)
[2023-02-27] MEDS ORDERED: DIPHTHERIA/TETANUS/PERTUSSIS Vaccine (Tdap, Age 7+yrs) 0.5mL SYR/VL IM ONE (09:00)
[2023-02-27] MEDS: DOCUSATE SODIUM 100 MG CAP PO SCH ×2 (10:01→20:16)
[2023-02-27] MEDS: PRENATAL VITAMIN 1 TAB PO SCH (10:01)
[2023-02-27 19:54] VITALS: RESP 18
[2023-02-27] MEDS ORDERED: bisacodyL 5 MG TABEC PO SCH (20:00)
[2023-02-28] MEDS: IBUPROFEN 600 MG TAB PO PRN ×2 (04:19→07:26)
--- NOTE | 2023-02-28 06:21 | Obstetrical Progress Note ---
Date of Service February 28, 2023 Assessment & Plan (1) Encounter for care and examination after delivery: Plan s/p day 2 Viral signs reviewed and WNL Blood type A+ Rubella non- immune, vaccine post GBS + treated in labor Pt doing well clinically Encourage ambulation Monitor and control pain with Motrin prn Regular diet, Monitor Lochia Encourage breast feeding Discharge home today, instructions reviewed today Admission and Anticipated Discharge Date Admission Date: February 26, 2023 Supervising Physician Co-Signing Physician Notes Resident Physician Supervision Note: I interviewed and examined the patient. Discussed with Dr. Storm Grant and agree with findings and plan as documented in the note. Any exceptions or clarifications are listed here: [None] Documented By: Yolanda Bennett MD, FACOG Subjective 32 yo post- day 2 s/p complicated with shoulder dystocia Ambulation: Ambulating normally Voiding: No problems voiding Passing Gas:: Yes Diet Tolerance: regular diet Lochia:: Small Feeding Type: breast feeding Current Pain Level: minimal Resting comfortably this AM in NAD. Denies BERGERON, CP, SOB, N/V/D, LE pain/swelling. Review of Systems Review of Systems: All systems reviewed & are unremarkable except as noted in HPI & below Physical Exam Physical Exam: General: patient resting comfortably, NAD, non-toxic in appearance, AA&O x 4, answers questions appropriately. Skin: warm, dry, intact HEENT: NC/AT, anicteric sclera, conjunctiva without injection, moist mucus membranes. Heart: +S1/S2, regular, no m/r/g Lungs: equal air entry bilaterally, no rales/rhonchi/wheezes Abd: +BS, soft, NT/ND, uterine fundus firm at umbilicus Ext: warm, no clubbing/cyanosis or edema, Radha's neg. Neuro: nonfocal, patient AA&O x 4, speech intact, no facial droop, moving all extremities on command. Results & Data Vital Signs (Past 12 Hours) Vital Signs Temp Pulse Pulse Resp BP Pulse Ox O2 Del Method 02/27/23 23:40 Room Air 02/27/23 23:40 36.8 C 64 18 109/63 97 Room Air 02/27/23 19:30 36.6 C 64 18 98/61 L 96 Room Air Resident Activity Tracking Resident Involvement: Resident Care Provided Care Provided: OB Delivery
[2023-02-28] MEDS ORDERED: MEASLES, MUMPS & RUBELLA VIRUS VACCINE (MMR) VIAL SQ ONE (06:49)
[2023-02-28] MEDS: DOCUSATE SODIUM 100 MG CAP PO SCH (07:26)
[2023-02-28] MEDS: PRENATAL VITAMIN 1 TAB PO SCH (07:26)
[2023-02-28 08:03] VITALS: BP 99/72; TEMP 97.9; O2SAT 98
[2023-02-28 08:15] VITALS: PULSE 64
== END 2023-02-28 08:59 | disposition home or self-care (01) | DRG 807 ==
LOC: OPB 02:18 → 4S1 02:20 → 4E2 20:34